=== PATIENT | female | born 1945 | race Caucasian/White ===

== ENCOUNTER 2024-03-04 14:52 | Inpatient (IN) | payer OTHER, MEDICARE, SELFPAY ==
[2024-03-04] VITALS (7 sets, daily range): BP systolic 126–159; BP diastolic 69–83; BMI 17.9
--- NOTE | 2024-03-04 13:39 | ED.GENMED ---
History of Present Illness
General
Chief Complaint: Musculo-Skeletal Complaint
Source: patient and spouse ( at bedside)
Exam Limitations: none
Time Seen by Provider: 03/04/24 13:19
Nursing documentation reviewed up to this point in time: agreed with
History of Present Illness
History of Present Illness:
79-year-old female presenting to the emergency department via EMS for evaluation of right hip pain. Patient states she sustained a mechanical fall last , 7 days ago, when she tripped over her bed sheets in her room. She was able to get up
after the fall but has had significant pain in her right hip since. Patient has been ambulating with much difficulty since fall with help of walker. Patient denies sustaining any other injuries in the fall. There was no head strike or loss of
conscious.
Patient denies any numbness/tingling in right hip. Patient specifically denies any headache, neck pain, back pain. No chest pain or shortness of breath.
Patient is not on any blood thinners.
Review of Systems
Review of Systems
Allergies reviewed?: Yes
All Other Systems: ROS reviewed and negative except as documented in HPI and ROS
Phy Exam
Physical Exam
Physical Exam:
Vitals: Mildly hypertensive, otherwise vital signs stable. Afebrile
General: Patient is uncomfortable appearing due to pain
Skin: Warm and dry, no rashes or lesions
Head: Normocephalic, atraumatic
Eyes: Sclera nonicteric. EOMs intact. No nystagmus.
Throat: Protecting airway
Neck: Normal ROM, no cervical spine tenderness, no meningismus
Cardiac: Regular rate and rhythm, no murmurs. No chest wall tenderness.
Pulm: Normal respiratory effort, no wheezes, rales, rhonchi heard on exam.
Abdomen: Abdomen soft. No abdominal tenderness.
Extremities: Right lower extremity shortened and externally rotated. Very limited range of motion of right hip due to pain. Healing ecchymoses of right iliac crest. Left lower extremity atraumatic and nontender with full range of motion.
Palpable DP and PT pulse in bilateral lower extremities. Sensation fully intact.
Neuro: AAOx3. Grossly intact.
Psychiatric: Normal affect.
Course
Orders/Labs/Results
Orders:
Orders
03/04/24 Breakfast
NPO
Allow oral meds: Yes
Allow clear liquids: Sips of Clears
03/04/24 11:21
Hip, Right 2-3 Views [CR Hip - RT w/wo Pel 2-3 Vw*] Urgent
Comment:
Reason For Exam: fall
Include a pelvis x-ray?: Yes
03/04/24 13:39
Acetaminophen [Tylenol] 650 mg PO NOW STA
03/04/24 13:41
Electrocardiogram (*1) Urgent
Reason for Study: PreOp
EKG- Treatment ONCE
03/04/24 14:00
Complete Blood Count/With Diff Urgent
Comprehensive Metabolic Panel Urgent
PTT Urgent
Prothrombin Time Urgent
03/04/24 14:23
Admit/Transfer Patient As Directed
Co-Sign Provider:
Level of Care: Inpatient admission
Assign to:: Medical/Surgical
Physician / Group: delma
Diagnosis: hip fracture
Reason for Hospitalization: hip fracture
Expected length of stay greater than two midnights?: Yes
ELOS- Estimated Length of Stay in days: 2
I certify the patient meets the requirements for IP care: Yes
Code Status As Directed
Resuscitation Status: Full Code
PRN Pain Medication Management As Directed
May give lesser potent ordered pain med per pt: Yes
preference::
Protocol:: Medication orders for pain may be administered in a
manner that supports deferring to patient preference
when the pt is:
- Requesting an ordered lesser potent pain medication.
Least to most potent pain medications are defined
as: acetaminophen < NSAID < tramadol < opioids
(morphine, oxycodone, hydromorphone).
- Requesting a lesser dose of the same medication IF
ORDERED.
- Requesting a less intrusive route of administration
if both routes are prescribed by the provider (PO <
IV).
03/04/24 Dinner
Regular
At Your Request: Full Participation
Does patient need a safe tray?: No
03/04/24 16:07
Acetaminophen [Tylenol] 650 mg PO Q4HPRN PRN
HYDROmorphone [Dilaudid] 0.5 mg IV Q4HPRN PRN
03/04/24 16:07
ORTHOPEDIC CONSULT Routine
Consulting Provider: Ky Shaffer
Was physician already notified: Yes
Activity As Directed
Activity Level: As Tolerated
Pneumatic Compression Sleeves As Directed
Type: Knee high
Vital Signs As Directed
Frequency: Per unit guidelines
DX Deep Vein Thrombosis Video Routine
Abnormal Lab Results
03/04/24
14:00
Absolute Neuts (auto) 8.0 H 10^3/uL
(1.4-6.5)
Absolute Lymphs (auto) 0.8 L 10^3/uL
(1.2-3.4)
Absolute Monos (auto) 0.8 H 10^3/uL
(0.1-0.6)
Neutrophils % 83.0 H %
(42.2-75.2)
Lymphocytes % 8.0 L %
(20.5-51.1)
BUN 27 H mg/dl
(7-17)
Total Protein 6.2 L g/dl
(6.3-8.2)
03/04/24 14:00
03/04/24 14:00
Vital Signs
Initial and Last Documented VS:
Initial Vital Signs
Temp Pulse Resp BP Pulse Ox
98 F 101 16 126/81 100
03/04/24 11:45 03/04/24 11:45 03/04/24 11:45 03/04/24 11:45 03/04/24 11:45
Last Documented Vital Signs
Temp Pulse Resp BP Pulse Ox
98.4 F 83 18 139/81 97
03/04/24 16:45 03/04/24 16:45 03/04/24 16:45 03/04/24 16:45 03/04/24 16:45
MDM/Problems Addressed
Differential Diagnosis Includes:
Not limited to: hip fracture, hip dislocation, hip contusion
MDM/Problems Addressed:
79-year-old female presents 7 days following mechanical fall with right hip pain. Difficulty ambulating due to pain. No other associated injuries obtained during fall. No head strike or loss of consciousness. Patient has stable vital signs on
arrival. On exam�patient clearly uncomfortable due to pain. Her right lower extremity is shortened and externally rotated. There is a mild healing ecchymosis of right hip. There is very limited range of motion in right hip due to pain. Right
lower extremity neurovascularly intact. There is no evidence of any head or neck trauma. An x-ray of the right hip was obtained which shows a mildly displaced subcapital fracture of the right hip. This was discussed with orthopedics. Patient
given Tylenol for pain. Preoperative labs including CBC, CMP, coags, EKG ordered. Patient will be admitted to hospitalist service with plan for OR tomorrow pending labs.
Update: Labs reviewed. No clinically significant abnormalities. Patient accepted to hospital service in stable condition.
Chronic conditions affecting care:
N/A
Acute Exacerbation and/or Progression of Chronic Illness:
N/A
*Radiology
Radiology exam reviewed: preliminary read by ED provider (Reviewed by me-right femoral neck fracture) and radiology read reviewed
*Pulse Oximetry
Patient hypoxic: no
*EKG
Interpreted by ED Provider?: Yes
EKG Intrepretation Date: 03/04/24
Interpretation: abnormal
Comparison EKG: no comparison EKG present
Heart Rate: 95
Rate: normal
Rhythm: sinus
Porter: left axis deviation
Interval: normal QT interval
QRS Pattern: normal QRS
Ischemia: non-specific ST changes
*Tax Manager Cpa Interpretation
Rate: normal
Interpretation: normal
Heart Rate: 84
Rhythm: sinus
*Critical Care Note
Total Time (30-74mins, 75-104mins- exclusive of procedures): Not Applicable
Patient Management
Discussion with other providers: Hospitalist and Direct Support Specialist (Orthopedics - Dr. Shaffer)
Escalation/DeEscalation of care consider admission/obs:
Admit - OR tomorrow with orthopedics
ED Attending Note
-
Portions of this chart may have been created with voice recognition software.� Occasional wrong word or��sound alike� substitutions may have occurred due to the inherent limitations of voice recognition software.
Discharge Plan
Departure
Patient Disposition: Admit
Date of Disposition: 03/04/24
Time of Disposition: 13:56
Presentation/result/management discussed w/ accepting MD/DO: Hospitalist
Discharge Problem:
Fracture of right hip
Interventions
Interventions:
*Risk Screen - Suicide Last Done: 03/04/24 11:49
*Neglect/Abuse Screening Last Done: 03/04/24 11:49
ED- Fall Risk Assessment Last Done: 03/04/24 12:51
*ED COVID-19 Vaccine History Last Done: 03/04/24 16:21
*Nursing Disposition Last Done: 03/04/24 15:56
ED-Musculoskeletal Assessment Last Done: 03/04/24 12:51
Discharge Date and Time
Discharge Date/Time: 03/04/24 15:56
[2024-03-04] MEDS: TYLENOL 650 MG PO (14:06)
[2024-03-04 14:10] LABS: % Basophils 0.2 % (0-2); % Eosinophils 0.3 % (0-6); % Immature Granulocytes 0.3 % (0-0.5); % Monocytes 8.2 % (1.7-9.3); Absolute Lymphocytes 0.8 10^3/uL (1.2-3.4); Absolute Monocytes 0.8 10^3/uL (0.1-0.6); Hemoglobin 13.7 g/dL (12.0-16.0); Mean Corp Hgb Conc. 33.4 g/dL (33.0-37.0); Mean Corpuscular Hgb 30.9 pg (27.0-31.0); Mean Corpuscular Volume 92.3 fL (81.0-99.0); Mean Platelet Volume 9.6 fL (7.4-10.4); Nucleated Red Blood Cells % 0 %; Platelet Count 263 10^3/uL (130-400); Red Blood Cell Count 4.44 10^6/uL (4.20-5.40); Red Cell Dist. Width 12.1 % (11.5-14.5); White Blood Cell Count 9.7 10^3/uL (4.8-10.8)
--- NOTE | 2024-03-04 14:25 | HPS.HSE ---
Family Physician
-
Family Physician: Amanda Vargas MD
Chief Complaint
-
hip pain
History of Present Illness
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 She had a mechanical fall last 7 days ago when she tripped over her bed sheets in her room. She was able to get up
after the fall but has significant pain in her right hip since then. She has been ambulating with much difficulty with the help of walker. She denies hitting her head or loss of consciousness. Denies any numbness or tingling in the right hip.
She denies smoking history. Alcohol occasionally.
Medical History
Past Medical History
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
Past Surgical History: Reports None
Social History
Tobacco: Non-smoker
Alcohol: Occasional
Drug: None
Family History
Family History: Not pertinent
Allergies / Home Medications
Allergies reflects when Allergies were last updated in [facility].
Home Medications with original date entered in [facility]
Allergy/Medication List:
Allergies
Allergy/AdvReac Type Severity Reaction Status Date / Time
diazepam Allergy Nausea Verified 03/04/24 12:47
Home Medications
No Meds [No Current Medications] 03/04/24
Review of Systems
-
History Source: Patient
A 12 point ROS was completed and negative except as noted: Yes
Constitutional: Reports No Symptoms
EENT: Reports No Symptoms
Respiratory: Reports No Symptoms
Cardiac: Reports No Symptoms
Abdomen/GI: Reports No Symptoms
: Reports No Symptoms
Musculoskeletal: Reports See HPI
Skin: Reports No Symptoms
Neurological: Reports No Symptoms
Endocrine: Reports No Symptoms
Hematologic/Lymphatic: Reports No Symptoms
Psych: Reports No Symptoms
Physical Exam
Vital Signs
Vital Signs
Temp Pulse Resp BP Pulse Ox
98 F 83 16 154/71 94
03/04/24 11:45 03/04/24 12:46 03/04/24 12:46 03/04/24 14:00 03/04/24 13:49
Physical Exam
General: Well Developed, Well Nourished and No Apparent Distress
HEENT: NormoCephalic, Moist mucous membranes and Atraumatic
Respiratory: Clear
Cardiac: S1/S2 and Regular Rhythm; No Murmur or Rub
GI: Soft, Non Tender, Non Distended and Normal Bowel Sounds; No Organomegaly
Rectal: Deferred by Provider
Musculoskeletal: No Clubbing, No Cyanosis and No Edema
Skin: No Rash
Neuro: Nonfocal/grossly intact
Laboratory Results
-
03/04/24 14:00
Data Reviewed
-
Lab Data: Labs Reviewed by me
Old Records: Reviewed
Impression/Plan
-
IMPRESSION:
PLAN:
# Right hip fracture
-Mildly displaced subcapital fracture of the right hip
-Tylenol, Dilaudid for pain
-Ortho consulted
-N.p.o. past midnight for surgery tomorrow
-Low risk for cardiac complications after surgery
Waldenstr�m's macroglobulinemia
-On Rituxan every 2 months,
-Receives immunoglobulin infusions
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
-Not malignant
Full code
DVT prophylaxis�SCDs
N.p.o. past midnight
[2024-03-04 14:36] LABS: PT 12.6 Sec (11.4-14.6)
[2024-03-04 14:43] LABS: ALT (SGPT) 17 U/L (0-35); AST (SGOT) 35 U/L (14-36); Albumin 3.7 g/dl (3.5-5.0); Alkaline Phosphatase 106 U/L (38-126); Blood Urea Nitrogen 27 mg/dl (7-17); Calcium 9.3 mg/dl (8.4-10.2); Carbon Dioxide 27 mmol/L (22-30); Chloride 105 mmol/L (98-107); Estimated Creatinine Clearance 43 ml/min; Glucose 93 mg/dl (70-99); Potassium 4.3 mmol/L (3.5-5.1); Sodium 139 mmol/L (135-145); Total Bilirubin 0.6 mg/dl (0.2-1.3); Total Protein 6.2 g/dl (6.3-8.2); eGFR > 60.00
--- NOTE | 2024-03-04 16:50 | W.PN.UPDATE ---
Update Note
Progress Note Update
With R femoral neck fx
Will need surgery--Hemiarthroplasty
NPO for tomorrow
thanks
GGMD
--- NOTE | 2024-03-04 17:01 | PTCARENOTE ---
Patient admitted from home through the Emergency room for right hip fracture.Patient fell last at home and came to the ER today with increasing pain in her right hip.She will have surgery tomorrow.She is alert and oriented and rates her
pain at an 8 out of 10.The patient is in her bed with the call ferreira in reach.Her is at the bedside.
[2024-03-05] VITALS (13 sets, daily range): BP systolic 121–170; BP diastolic 62–97
[2024-03-05] MEDS: TYLENOL 650 MG PO ×2 (00:25→04:47)
--- NOTE | 2024-03-05 12:16 | W.PN.HOSP.TC ---
Today's Communication/Plan
-
Await surgery
Assessment / Plan
Assessment / Plan
Gen-AAOx3, NAD
HEENT-NC, AT, anicteric, clear oral mm
Neck-supple
CV-reg, no M, +S1/S2
Lungs-clear B/L
Abd-soft, NT, ND
Ext-no edema
Musculoskeletal-no cyanosis, clubbing
Skin-warm and dry
Neuro-grossly non-focal
Psych-calm, cooperative
Acute traumatic right hip subcapital fracture -due to fall and underlying osteoporosis. Fall happened about 8 days ago. She believed that her pain would improve at home and did not seek medical attention initially.
Currently n.p.o., awaiting surgery today. Orthopedics consulted.
Outpatient treatment of osteoporosis, discussed with the patient.
Waldenstr�m's macroglobulinemia
Full code
PT/OT postop
Anticipated Discharge: 24 - 48 hours
Subjective/Interval History
-
Date of Service: March 05, 2024
Patient seen and examined. Pain is controlled. No other complaints.
Objective Data
-
Vital Signs:
Vital Signs
Temp Pulse Resp BP Pulse Ox
98.3 F 78 18 149/80 97
03/05/24 08:03 03/05/24 08:03 03/05/24 08:03 03/05/24 08:03 03/05/24 08:03
I&O
03/04/24 03/05/24 03/06/24
06:59 06:59 06:59
Output Total 250 / 250 300 / 300
Balance -250 / -250 -300 / -300
Review of Systems
-
History Source: Patient
All other systems: Reviewed and negative
[2024-03-05] MEDS: ZOFRAN 4 MG IV (15:29)
[2024-03-05] MEDS: COMPAZINE 5 MG IV (15:52)
--- NOTE | 2024-03-05 16:16 | CM ---
Met with pt at bedside
Pt reports she lives with her in a 1 story home; 2 steps to enter
Independent, employed FT, drives
DME - rolling walker
SNF/HH - denies past hx
Has ride at discharge
PCP - Amanda Vargas
Pharm - Ed
For OR today for repair of hip fx
Discussed SNF vs HH at discharge
PT/OT evals pending post-op
Plan - TBD based on pt needs postop
[2024-03-05] MEDS: NORMOSOL-R/PLASMALYTE-A 1000 IV (16:58)
--- NOTE | 2024-03-05 17:00 | PTCARENOTE ---
received pt back from PACU. pt is drowsy, responds to verbal stimuli with stable vitals. pt presents on 2L NC. care/assessment provided upon coming back to unit. 2 primaseal dressing present on right hip; no shadowing noted on 2nd outermost
dressing upon arrival to the floor. fluids initiated/infusing per order. Neuro checks preformed; see charting. care plan continues to be followed. PROTECTIVE SIGNAL OPERATIONS SUPERVISOR touched base with spouse via phone.
[2024-03-05] MEDS: COLACE PO ×2 (21:17→21:21)
[2024-03-05] MEDS: ANCEF 5 IV (21:18)
[2024-03-06] VITALS (7 sets, daily range): BP systolic 101–138; BP diastolic 60–72; PULSE 100
[2024-03-06] MEDS: NORMOSOL-R/PLASMALYTE-A 1000 IV (01:53)
[2024-03-06] MEDS: ANCEF 5 IV ×2 (05:56→15:27)
[2024-03-06 06:06] LABS: Hematocrit 34.8 % (37.0-47.0); Hemoglobin 11.6 g/dL (12.0-16.0)
[2024-03-06 06:30] LABS: Blood Urea Nitrogen 27 mg/dl (7-17); Calcium 8.5 mg/dl (8.4-10.2); Carbon Dioxide 30 mmol/L (22-30); Chloride 101 mmol/L (98-107); Estimated Creatinine Clearance 34 ml/min; Glucose 133 mg/dl (70-99); Potassium 4.1 mmol/L (3.5-5.1); Sodium 138 mmol/L (135-145); eGFR 57.31
[2024-03-06] MEDS: COLACE 100 MG PO (07:55)
[2024-03-06] MEDS: LOVENOX 30 MG SC (07:56)
--- NOTE | 2024-03-06 08:04 | W.PN.UPDATE ---
Update Note
Progress Note Update
Comfortable
VSS
Dressing intact
R LE NVI
Xrays look well
Rec;
PT/POT
Rehab placement if needed
Should have DVT prophylaxis for ~4 weeks
Lovenox best
Have F/U with me in about 2 weeks for suture removal
thanks
GGMD
[2024-03-06] MEDS: TYLENOL 650 MG PO (10:44)
--- NOTE | 2024-03-06 13:45 | W.PN.HOSP.TC ---
Today's Communication/Plan
-
PT/OT
Assessment / Plan
Assessment / Plan
Gen-AAOx3, NAD
HEENT-NC, AT, anicteric, clear oral mm
Neck-supple
CV-reg, no M, +S1/S2
Lungs-clear B/L
Abd-soft, NT, ND
Ext-no edema
Musculoskeletal-no cyanosis, clubbing
Skin-warm and dry
Neuro-grossly non-focal
Psych-calm, cooperative
Acute traumatic right hip subcapital fracture -due to fall and underlying osteoporosis. Fall happened about 8 days ago.
Stable postop, right hip cemented hemiarthroplasty, 03/[address] Shaffer. Outpatient follow-up.
Waldenstr�m's macroglobulinemia -with acute postop anemia possibly due to operative blood loss. Hemoglobin 11.6. Monitor for now.
Full code
Dispo -likely will need SNF on discharge, await PT/OT input. Case management aware.
Anticipated Discharge: 24 - 48 hours
Subjective/Interval History
-
Date of Service: March 06, 2024
Patient seen and examined. Pain is controlled. No complaints.
Objective Data
-
Labs:
Laboratory Results
03/06/24
05:23
Hgb 11.6 L
Hct 34.8 L
Sodium 138
Potassium 4.1
Chloride 101
Carbon Dioxide 30
BUN 27 H
Creatinine 1.0
Glucose 133 H
Calcium 8.5
Vital Signs:
Vital Signs
Temp Pulse Resp BP Pulse Ox
98.7 F 96 18 101/61 95
03/06/24 11:30 03/06/24 11:30 03/06/24 11:30 03/06/24 11:30 03/06/24 11:30
I&O
03/05/24 03/06/24 03/07/24
06:59 06:59 06:59
Intake Total 1810 / 1810
Output Total 250 / 250 300 / 300
Balance -250 / -250 1510 / 1510
Review of Systems
-
History Source: Patient
All other systems: Reviewed and negative
[2024-03-06] MEDS: NORMOSOL-R/PLASMALYTE-A IV ×2 (15:28)
--- NOTE | 2024-03-06 15:48 | CM ---
Reviewed the chart notes and spoke with the patient and her spouse at the bedside. Discussed SNF recommendations. Referrals sent via [facility] along with [facility]. CM continues to be available to patient/family and is monitoring medical plan for
needs at discharge.
Plan: Discharge to SNF/rehab once bed secured. No precert required.
[2024-03-06] MEDS: COLACE PO (21:27)
[2024-03-07 08:24] VITALS: BP 129/71
[2024-03-07] MEDS: TYLENOL 650 MG PO ×2 (10:10→18:13)
[2024-03-07] MEDS: LOVENOX 30 MG SC (10:11)
[2024-03-07] MEDS: COLACE 100 MG PO (10:11)
--- NOTE | 2024-03-07 11:31 | CM ---
Received an e-mailed copy of the patient' primary insurance of [employer], a managed plan. Spoke with admissions, they do not need the back of card. Admissions changed Medicare as primary to secondary. Per spouse, they can not
bill Medicare or for hospitalization or services. CM continues to be available to patient/family and is monitoring medical plan for needs at discharge.
Plan: Discharge to SNF/rehab once bed secured and auth obtained since Medicare is not the primary.
[2024-03-07 12:29] VITALS: BP 101/60; PULSE 109; O2SAT 99
--- NOTE | 2024-03-07 13:57 | W.PN.HOSP.TC ---
Today's Communication/Plan
-
Discharge planning
Assessment / Plan
Assessment / Plan
Gen-AAOx3, NAD
HEENT-NC, AT, anicteric, clear oral mm
Neck-supple
CV-reg, no M, +S1/S2
Lungs-clear B/L
Abd-soft, NT, ND
Ext-no edema
Musculoskeletal-no cyanosis, clubbing
Skin-warm and dry
Neuro-grossly non-focal
Psych-calm, cooperative
Acute traumatic right hip subcapital fracture -due to fall and underlying osteoporosis. Fall happened about 8 days ago.
Stable postop, right hip cemented hemiarthroplasty, 03/[address] Shaffer. Outpatient follow-up.
Waldenstr�m's macroglobulinemia -with acute postop anemia possibly due to operative blood loss. Hemoglobin 11.6. Monitor for now.
Full code
Dispo -medically stable for discharge to SNF. Case management aware.
Anticipated Discharge: Within 24 hours
Subjective/Interval History
-
Date of Service: March 07, 2024
Patient seen and examined. No complaints.
Objective Data
-
Vital Signs:
Vital Signs
Temp Pulse Resp BP Pulse Ox
98.6 F 90 14 129/71 95
03/07/24 08:24 03/07/24 08:24 03/07/24 08:24 03/07/24 08:24 03/07/24 08:24
I&O
03/06/24 03/07/24 03/08/24
06:59 06:59 06:59
Intake Total 1810 / 1810 1380 / 1380
Output Total 300 / 300
Balance 1510 / 1510 1380 / 1380
Review of Systems
-
History Source: Patient
All other systems: Reviewed and negative
[2024-03-07 15:22] VITALS: BP 95/66
[2024-03-07] MEDS: COLACE PO (21:52)
[2024-03-07 23:18] VITALS: BP 129/66
[2024-03-08 07:10] VITALS: BP 119/63
--- NOTE | 2024-03-08 08:36 | W.PN.HOSP.TC ---
Today's Communication/Plan
-
Pain control. Discharge planning in progress.
Assessment / Plan
Assessment / Plan
Gen-AAOx3, NAD
HEENT-NC, AT, anicteric, clear oral mm
Neck-supple
CV-reg, no M, +S1/S2
Lungs-clear B/L
Abd-soft, NT, ND
Ext-no edema
Musculoskeletal-no cyanosis, clubbing, right hip postop findings
Skin-warm and dry
Neuro-grossly non-focal
Psych-calm, cooperative
A/P:
Acute traumatic right hip subcapital fracture -due to fall and underlying osteoporosis. Fall happened about 8 days ago.
Stable postop, right hip cemented hemiarthroplasty, 03/[address] Shaffer. Added oral narcotic pain medications as needed. Continue bowel regimen. Outpatient follow-up. Awaiting correctional case records supervisor for discharge disposition.
Waldenstr�m's macroglobulinemia -and also a component of acute blood loss. Hemoglobin 11.1. Monitor hb.
Lovenox for DVT prophylaxis.
Full code
Anticipated Discharge: 24 - 48 hours
Subjective/Interval History
-
Date of Service: March 08, 2024
Patient able to participate in therapy. Surgical site soreness. No chest pain or shortness of breath.
Objective Data
-
Vital Signs:
Vital Signs
Temp Pulse Resp BP Pulse Ox
98.1 F 99 16 119/63 96
03/08/24 07:10 03/08/24 07:10 03/08/24 07:10 03/08/24 07:10 03/08/24 07:10
I&O
03/07/24 03/08/24 03/09/24
06:59 06:59 06:59
Intake Total 1380 / 1380 720 / 720
Balance 1380 / 1380 720 / 720
[2024-03-08] MEDS: COLACE PO ×2 (08:38→20:49)
[2024-03-08] MEDS: LOVENOX 30 MG SC (08:38)
[2024-03-08 09:28] LABS: Hematocrit 33.7 % (37.0-47.0); Hemoglobin 11.1 g/dL (12.0-16.0)
[2024-03-08 13:12] VITALS: BP 129/72; PULSE 115
[2024-03-08 15:05] VITALS: BP 124/73
[2024-03-08 15:30] VITALS: BP 124/73; PULSE 117; O2SAT 97
--- NOTE | 2024-03-08 16:11 | CM ---
Met with pt and her at bedside
Discussed accepting facility's - preference is [facility]
Will review insurance to check within network
Plan - anticipate SNF when bed obtained and medically ready
--- NOTE | 2024-03-08 16:41 | PTCARENOTE ---
Patient has no c/o pain, only tenderness when palpating right thigh. Patient ambulating to bathroom with supervision. patient refers to sit in chair during the day. Call ferreira in reach, spouse at bedside.
[2024-03-08] MEDS: TYLENOL 650 MG PO (20:57)
[2024-03-08 23:30] VITALS: BP 147/85
[2024-03-09 07:04] LABS: Hematocrit 31.5 % (37.0-47.0); Hemoglobin 10.3 g/dL (12.0-16.0); Mean Corp Hgb Conc. 32.7 g/dL (33.0-37.0); Mean Corpuscular Volume 94.9 fL (81.0-99.0); Mean Platelet Volume 9.8 fL (7.4-10.4); Platelet Count 351 10^3/uL (130-400); Red Blood Cell Count 3.32 10^6/uL (4.20-5.40); Red Cell Dist. Width 12.7 % (11.5-14.5); White Blood Cell Count 10.2 10^3/uL (4.8-10.8)
[2024-03-09 07:15] VITALS: BP 136/83
[2024-03-09 07:39] LABS: Blood Urea Nitrogen 24 mg/dl (7-17); Calcium 8.8 mg/dl (8.4-10.2); Carbon Dioxide 31 mmol/L (22-30); Chloride 101 mmol/L (98-107); Estimated Creatinine Clearance 38 ml/min; Glucose 96 mg/dl (70-99); Sodium 139 mmol/L (135-145); eGFR > 60.00
[2024-03-09] MEDS: COLACE PO (08:11)
[2024-03-09] MEDS: LOVENOX 30 MG SC (08:15)
--- NOTE | 2024-03-09 08:56 | W.PN.HOSP.TC ---
Addendum entered and electronically signed by Ang Chanel MD 03/09/24 17:54:
updated over the phone
Addendum entered and electronically signed by Ang Chanel MD 03/09/24 15:01:
Underweight
Original Note:
Today's Communication/Plan
-
Discharge planning in progress
Assessment / Plan
Assessment / Plan
Gen-AAOx3, NAD
HEENT-NC, AT, anicteric, clear oral mm
Neck-supple
CV-reg, no M, +S1/S2
Lungs-clear B/L
Abd-soft, NT, ND
Ext-no edema
Musculoskeletal-no cyanosis, clubbing, right hip postop findings
Skin-warm and dry
Neuro-grossly non-focal
Psych-calm, cooperative
A/P:
Acute traumatic right hip subcapital fracture -due to fall and underlying osteoporosis. Fall happened about 8 days ago.
Stable postop, right hip cemented hemiarthroplasty, 03/[address] Shaffer. Added oral narcotic pain medications as needed. Continue bowel regimen. Outpatient follow-up. Awaiting case work aide for discharge disposition.
Waldenstr�m's macroglobulinemia -and also a component of acute blood loss. Hemoglobin 11.1. Monitor hb.
Lovenox for DVT prophylaxis.
Full code
Anticipated Discharge: 24 - 48 hours
Subjective/Interval History
-
Date of Service: March 09, 2024
Patient with normal postop site pain. No chest pain or shortness of breath
Objective Data
-
Labs:
Laboratory Results
03/09/24
06:19
WBC 10.2
Hgb 10.3 L
Hct 31.5 L
Plt Count 351 D
Sodium 139
Potassium 4.0
Chloride 101
Carbon Dioxide 31 H
BUN 24 H
Creatinine 0.9
Glucose 96
Calcium 8.8
Vital Signs:
Vital Signs
Temp Pulse Resp BP Pulse Ox
98.3 F 83 17 136/83 96
03/09/24 07:15 03/09/24 07:15 03/09/24 07:15 03/09/24 07:15 03/09/24 07:15
I&O
03/08/24 03/09/24 03/10/24
06:59 06:59 06:59
Intake Total 720 / 720 960 / 960
Balance 720 / 720 960 / 960
--- NOTE | 2024-03-09 10:54 | PN.CDI ---
CDI
- -
CDI:
Physician Documentation Request
Admit Date: 03/04/24 14:52
Dear Doctor Darío,
Please review the following and provide your response in the progress notes.
Clinical Indicators:
Height: 5' 4'
Weight: 104 lbs
BMI: 17.9
If possible, please provide an associated diagnosis related to the abnormal BMI, such as:
Underweight
Cachectic
BMI is not significant
Other
BMI < or = to 19.9
Underweight
Weight Loss
Cachectic
Anorexia
Use of terms such as suspected, likely, concern for, or probable (associated with a specific diagnosis that is being evaluated, monitored, or treated as if it exists) are acceptable and can be coded in the inpatient setting, when documented at the
time of discharge.
Thank you,
Taty Kraft RN, BSN
CDI Specialist
Available via [place] text
Please use your independent medical judgment in providing your response.
[2024-03-09 11:05] VITALS: BP 125/79; PULSE 106
--- NOTE | 2024-03-09 15:44 | CM ---
Chart reviewed and met with pt
Spoke with Sujatha at [facility] [phone]
Per Sujatha Landin does not cover SNF
Pt/ updated - discussed poss private pay or having secondary insurance pay
No bed today at [facility]
Plan - anticipate snf vs HH when medically stable
[2024-03-09 18:10] VITALS: BP 112/70
[2024-03-09] MEDS: COLACE 100 MG PO (20:17)
[2024-03-09] MEDS: TYLENOL 650 MG PO (20:17)
[2024-03-09 23:02] VITALS: BP 134/73
[2024-03-10 07:10] LABS: Hemoglobin 10.8 g/dL (12.0-16.0)
[2024-03-10 08:00] VITALS: BP 116/69
[2024-03-10] MEDS: LOVENOX 30 MG SC (08:59)
[2024-03-10] MEDS: COLACE PO ×2 (09:00→21:40)
--- NOTE | 2024-03-10 09:49 | W.PN.HOSP.TC ---
Today's Communication/Plan
-
Postop care
Assessment / Plan
Assessment / Plan
Gen-AAOx3, NAD
HEENT-NC, AT, anicteric, clear oral mm
Neck-supple
CV-reg, no M, +S1/S2
Lungs-clear B/L
Abd-soft, NT, ND
Ext-no edema
Musculoskeletal-no cyanosis, clubbing, right hip postop findings
Skin-warm and dry
Neuro-grossly non-focal
Psych-calm, cooperative
A/P:
Acute traumatic right hip subcapital fracture -due to fall and underlying osteoporosis. Fall happened about 8 days ago.
Stable postop, right hip cemented hemiarthroplasty, 03/[address] Shaffer. Added oral narcotic pain medications as needed. Continue bowel regimen. Outpatient follow-up. Awaiting employment case manager for discharge disposition-Home with home health versus
rehab.
Waldenstr�m's macroglobulinemia -and also a component of acute blood loss. Hemoglobin 10.8. Monitor hb.
Lovenox for DVT prophylaxis.
Full code
Anticipated Discharge: 24 - 48 hours
Subjective/Interval History
-
Date of Service: March 10, 2024
Patient doing well. No chest pain or shortness of breath.
Objective Data
-
Labs:
Laboratory Results
03/10/24
06:46
Hgb 10.8 L
Hct 32.0 L
Vital Signs:
Vital Signs
Temp Pulse Resp BP Pulse Ox
98.7 F 99 16 116/69 100
03/10/24 08:00 03/10/24 08:00 03/10/24 08:00 03/10/24 08:00 03/10/24 08:00
I&O
03/09/24 03/10/24 03/11/24
06:59 06:59 06:59
Intake Total 960 / 960 1440 / 1440
Balance 960 / 960 1440 / 1440
[2024-03-10 12:58] VITALS: BP 114/63; PULSE 110; O2SAT 100
[2024-03-10 15:54] VITALS: BP 127/77
[2024-03-10] MEDS: TYLENOL 650 MG PO (21:38)
[2024-03-10 23:15] VITALS: BP 143/76
[2024-03-11 07:00] VITALS: BP 119/75
--- NOTE | 2024-03-11 07:24 | W.PN.HOSP.TC ---
Addendum entered and electronically signed by Ang Chanel MD 03/11/24 16:39:
Right hip fracture related to trauma and it has not been confirmed there is evidence of osteoporosis. She will have bone scan as outpatient for further evaluation
Original Note:
Today's Communication/Plan
-
Discharge planning today
Assessment / Plan
Assessment / Plan
Gen-AAOx3, NAD
HEENT-NC, AT, anicteric, clear oral mm
Neck-supple
CV-reg, no M, +S1/S2
Lungs-clear B/L
Abd-soft, NT, ND
Ext-no edema
Musculoskeletal-no cyanosis, clubbing, right hip postop findings
Skin-warm and dry
Neuro-grossly non-focal
Psych-calm, cooperative
A/P:
Acute traumatic right hip subcapital fracture -due to fall and underlying osteoporosis. Fall happened about 8 days ago.
Stable postop, right hip cemented hemiarthroplasty, 03/[address] Shaffer. Added oral narcotic pain medications as needed. Continue bowel regimen. Outpatient follow-up. Awaiting disease case manager for discharge disposition-Home with home health versus
rehab. Patient decided on home with home health.
Waldenstr�m's macroglobulinemia -and also a component of acute blood loss. Hemoglobin 10.8. Monitor hb. Rituximab as OP.
Lovenox for DVT prophylaxis.
Full code
Anticipated Discharge: Today
Subjective/Interval History
-
Date of Service: March 11, 2024
Patient doing well overall. Walking to the hallway.
Objective Data
-
Labs:
Laboratory Results
03/11/24
06:10
Hgb Pending
Hct Pending
Vital Signs:
Vital Signs
Temp Pulse Resp BP Pulse Ox
98.9 F 88 16 143/76 96
03/10/24 23:15 03/10/24 23:15 03/10/24 23:15 03/10/24 23:15 03/11/24 00:09
I&O
03/10/24 03/11/24 03/12/24
06:59 06:59 06:59
Intake Total 1440 / 1440 480 / 480
Balance 1440 / 1440 480 / 480
[2024-03-11 07:46] LABS: Hematocrit 33.3 % (37.0-47.0); Hemoglobin 11.2 g/dL (12.0-16.0)
[2024-03-11] MEDS: COLACE PO (07:53)
--- NOTE | 2024-03-11 11:56 | CM ---
Addendum entered by Ehsan Mg 03/11/24 13:37:
Discharge order noted. Pt is aware and she stated her will transport home.
[facility] liaison met with the pt. Pt is accepted for VN services.
D/C plan: home with [facility] and family support. to transport.
Original Note:
CM following re: discharge planning.
Reviewed pt's chart, met with pt.
PT and OT updated evaluations noted - home PT/OT recommended. Pt is aware, expressed her agreement. A list of VN vendors provided, pt preferred [facility]. A referral to [facility] made.
Pt reports she lives with at [facility], has no children. 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
Pt has Medicare insurance as secondary. IMM reviewed, placed on chart, pt has a copy.
D/C plan: home with [facility] and family support. to transport at discharge.
CM will follow to assist pt with discharge plan updates as needed.
--- NOTE | 2024-03-11 12:42 | VNURNOTE ---
Home Health Liaison met with patient at bedside to discuss [facility] nurse/therapy, visits, schedule and homebound status. Patient is agreeable and understands that visits at home will be 2-3 x per week to assess and teach medical management. [facility]
brochure provided with contact information. Patient is aware that [facility] will contact them for start of care in 1-2 days after discharge from .
[facility] referral completed in [facility].
--- NOTE | 2024-03-11 13:17 | W.DCSUMMARY ---
Discharge Summary
Discharge Data
Date of Admission: 03/04/24
Date of Discharge: 03/11/24
-
Pending Results: No
Hospital Course
Patient is 79 years old female with history of Waldenstr�m macroglobulinemia presented to the hospital with a mechanical fall. She was found to have a right femoral neck fracture. Orthopedic consulted. She had a right hip cemented
hemiarthroplasty on 03/05. She did well postoperatively except for mild drop in her hemoglobin but later on remained stable. She has participated with PT and OT. human resources assistant manager was going to work on rehab but she did so well that she can go home
with home health and she also did not qualify for rehab. Due to the concerns of her fall and fracture patient will require further workup for osteoporosis with follow-up bone scan as outpatient. Otherwise, patient hemodynamically stable and doing
well postop. She will be discharged in stable condition today.
Discharge Plan
-
Patient Disposition: Home with Home Care
Discharge Diagnosis/Procedures: Right hip fracture status post surgery from trauma. Acute blood loss anemia. Further workup required for osteoporosis as outpatient. History of Waldenstr�m's macroglobulinemia.
Diet: Low Cholesterol
Activity: Other activity
Additional Activity: As instructed by orthopedic and physical therapy.
Blood Work: Please PCP to order CBC, BMP within 1 week
Referrals:
Ky Shaffer MD [Active] - in one to two weeks
Amanda Vargas MD [Family Provider] - in less than 1 week
Prescriptions:
New
acetaminophen 325 mg Tablet
650 mg PO Q4HPRN PRN (Reason: mild pain/TEJADA/temp> 100.4F) Qty: 20 0RF
oxycodone 5 mg capsule
5 mg PO Q8H PRN (Reason: severe pain) Qty: 20 0RF
docusate sodium [Colace] 100 mg capsule
100 mg PO BID Qty: 20 0RF
enoxaparin 40 mg/0.4 mL Syringe
40 mg SC DAILY 28 Days Qty: 11.2 0RF
(DME) commode
See Rx Instructions .Route .MEDSUPPLY Qty: 1 0RF
Rx Instructions:
As directed
Discharge Orders:
Discharge Patient (As Directed); Ordered 03/11/24
Ordered By: Ang Chanel
Discharge Date and Time
Discharge Date/Time: 03/11/24 17:00
Print Language: CROATIAN
[2024-03-11 15:07] VITALS: BP 119/81
== END 2024-03-11 17:00 | disposition home health service (06) | DRG 522 ==
LOC: 2 SOUTH 14:52
PROVIDERS: Physician Assistant; ADMITTING PHYSICIAN Hospitalist; ATTENDING PHYSICIAN Hospitalist; CONSULT PHYSICIAN Orthopaedic Surgery Hand Surgery; EMERGENCY PHYSICIAN Student in an Organized Health Care Education/Training Program; FAMILY PHYSICIAN Student in an Organized Health Care Education/Training Program
PROC: 0SRR0J9 Replacement of Right Hip Joint, Femoral Surface with Synthetic Substitute, Cemented, Open Approach (ICD-10-PCS; 2024-03-05)
DX: S72.011A Unspecified intracapsular fracture of right femur, initial encounter for closed fracture (principal); D62 Acute posthemorrhagic anemia; Z68.1 Body mass index [BMI] 19.9 or less, adult; C88.00 Waldenstrom macroglobulinemia not having achieved remission; R63.6 Underweight; W01.0XXA Fall on same level from slipping, tripping and stumbling without subsequent striking against object, initial encounter; Y93.01 Activity, walking, marching and hiking; Y92.003 Bedroom of unspecified non-institutional (private) residence as the place of occurrence of the external cause; Z88.8 Allergy status to other drugs, medicaments and biological substances
CPT/HCPCS: 73501; 73502; 80048; 80053; 85014; 85018; 85025; 85027; 85610; 85730; 86850; 86900; 86901; 93005; 97116; 97163; 97166; 97530; 97535; 99285; C1713; C1776

== ENCOUNTER 2025-01-21 19:40 | Inpatient (IN) | payer MEDICARE, SELFPAY ==
[2025-01-21 12:38] VITALS: BP 105/75
[2025-01-21] MEDS: TYLENOL 650 MG PO ×2 (13:23→21:26)
[2025-01-21 13:40] LABS: ALT (SGPT) 46 U/L (0-35); AST (SGOT) 206 U/L (14-36); Albumin 4.2 g/dl (3.5-5.0); Alkaline Phosphatase 287 U/L (38-126); Blood Urea Nitrogen 28 mg/dl (7-17); Calcium 9.1 mg/dl (8.4-10.2); Carbon Dioxide 28 mmol/L (22-30); Chloride 100 mmol/L (98-107); Glucose 127 mg/dl (70-99); Potassium 3.4 mmol/L (3.5-5.1); Sodium 136 mmol/L (135-145); Total Protein 6.6 g/dl (6.3-8.2); eGFR 41.83
[2025-01-21 13:43] LABS: Hematocrit 45.5 % (37.0-47.0); Hemoglobin 15.1 g/dL (12.0-16.0); Mean Corp Hgb Conc. 33.2 g/dL (33.0-37.0); Mean Corpuscular Volume 86.3 fL (81.0-99.0); Red Cell Dist. Width 14.2 % (11.5-14.5)
[2025-01-21 14:19] LABS: Platelet Count 30 10^3/uL (130-400)
[2025-01-21 14:20] LABS: Absolute Neutrophils -Man Diff 7.5 10^3/uL (1.4-6.5); Normal RBC Morphology Yes; Platelets Checked Yes; Total Cells Counted 100
[2025-01-21 15:49] LABS: Urine Character Cloudy (Clear)
[2025-01-21 16:25] LABS: Urine White Cell >100 /HPF (0-5)
[2025-01-21 17:00] VITALS: BP 114/68
[2025-01-21] MEDS: NSS 500 IV (17:19)
[2025-01-21] MEDS: ROCEPHIN 2000 MG IV (17:36)
[2025-01-21 18:00] VITALS: BP 132/73
[2025-01-21 18:02] LABS: COVID-19 Antigen Negative (Negative)
--- NOTE | 2025-01-21 18:45 | ED.GENMED ---
History of Present Illness
General
Chief Complaint: Bowel Problem
Source: patient and spouse
Time Seen by Provider: 01/21/25 16:54
History of Present Illness
History of Present Illness:
Note:
CHIEF COMPLAINT(S)
Abdominal pain
HISTORY OF PRESENT ILLNESS
The patient is a 63-year-old female who presents with abdominal pain that began yesterday morning. She describes the pain as located in the epigastric area, at the top part of her abdomen. She reports an associated low-grade fever of 99.8�F noted at
urgent care. She denies nausea, vomiting, or changes in bowel movements, with no black or bloody stools. She also denies any urinary complaints. The patient admits to passing gas and denies alcohol use. She mentioned a history of gallstones
discovered incidentally during an imaging study for another reason.
PAST MEDICAL AND SURIGICAL HISTORY
The patient has undergone an appendectomy and about six laparoscopic surgeries for endometriosis, aimed at addressing abdominal adhesions and endometrial implants. She ultimately underwent a hysterectomy.
EXTERNAL RECORDS REVIEWED
The patient mentioned visiting urgent care, where an x-ray was performed, leading to a suspicion of constipation. However, no details about the gallbladder or pancreas were obtained from that imaging.
CHRONIC MEDICAL CONDITIONS SIGNIFICANTLY AFFECTING CARE
History of endometriosis, leading to multiple laparoscopic surgeries and hysterectomy.
History of gallstones.
PHYSICAL EXAM
General: Alert, no acute distress.
Skin: Warm, dry.
Head: Normocephalic, atraumatic.
Neck: Supple, trachea midline.
Eye Ears, nose, mouth and throat: Oral mucosa moist.
Cardiovascular: Regular rate and rhythm, normal peripheral perfusion, no edema.
Respiratory: Lungs clear to auscultation, respirations non-labored.
Gastrointestinal : Moderate tenderness in the epigastric region and right upper quadrant without abdominal distension.
Back: Normal range of motion, normal alignment.
Musculoskeletal: Normal range of motion, normal strength.
Neurological: Alert and oriented to person, place, time, and situation, no focal neurological deficit observed.
Psychiatric: Cooperative, appropriate mood & affect.
PLAN
A CT scan is recommended to evaluate the gallbladder, pancreas, and bowel thoroughly, as well as to assess the aorta in light of the pains location. The CT scan will help rule out potential gastrointestinal or pancreatic issues and provide a
comprehensive view of the abdominal organs. Further ultrasound may be considered if the CT results indicate an abnormality requiring additional focus, particularly in the gallbladder.
DIFFERENTIAL DIAGNOSIS
The Differential Diagnosis includes, in no particular order and is not limited to:
1. Cholecystitis
2. Peptic Ulcer Disease
3. Gastritis
4. Pancreatitis
5. Hepatitis
6. Biliary Colic
7. Mesenteric Ischemia
8. Gastroesophageal Reflux Disease (GERD)
9. Abdominal Aortic Aneurysm
10. Bowel Obstruction
CARE-UPDATE
01/21/25 - 23:25
Patient continues to experience pain, although some improvement noted, especially with easier breathing. Examination suggests possible inflammation at the junction of the pancreas and small bowel. Blood work, including pancreas enzymes, is normal.
Current pain might be due to gallstones or potential small bowel inflammation related to mild infection or ulcer. Plan to monitor patient overnight with IV fluids and bowel rest. Administered antacid to address possible ulcer. Decision to observe
overnight is precautionary, with potential for discharge if pain significantly improves by morning. Patient declined additional pain medication at this time but is advised to request if needed.
Disposition:
SUMMARY OF ENCOUNTER
The patient is a 63-year-old female who presented to the emergency department with abdominal pain. Upon reassessment, the patients pain persisted, and laboratory tests revealed leukocytosis with a white blood cell count of 13.7, hyponatremia with a
sodium level of 132, hypokalemia with a potassium level of 2.9, and mild dehydration as evidenced by a BUN/Creatinine ratio of 24 and creatinine level of 1.1. Blood glucose was 137 mg/dL. Liver function tests showed normal AST and ALT levels, while
lipase was normal. A CT scan of the abdomen revealed cholelithiasis and inflammatory changes around the second to third portion of the duodenum, possibly involving the pancreas. Due to her persistent pain and leukocytosis, an ultrasound was
considered to check for a possible gallbladder neck stone. Diagnostic considerations included pancreatitis, cholecystitis, duodenitis, and duodenal ulcer.
PLAN
The plan includes administering IV pantoprazole (Protonix), IV ampicillin/sulbactam (Unasyn), continuing pain control, and keeping the patient NPO for bowel rest. IV D5W with normal saline will be administered, and the patient will be admitted for
further management. Gastroenterology and possibly surgical consultations may be needed.
INDEPENDENT REVIEW OF LABS AND INTERPRETATION OF TESTS
My independent review of the CBC is leukocytosis with a white blood cell count of 13.7.
My independent review of chemistry reveals hyponatremia with sodium at 132, hypokalemia at 2.9, and a BUN/Creatinine ratio of 24 with creatinine at 1.1.
Blood glucose review indicates a level of 137 mg/dL.
LFT review shows normal AST and ALT levels, with a normal lipase.
RADIOLOGY RESULTS
My independent CT interpretation shows cholelithiasis and inflammatory changes around the second to third portion of the duodenum, potentially involving the pancreas.
MEDICAL DECISION MAKING
- Number and Complexity of Problems Addressed: Chronic conditions affecting care include a history of endometriosis with multiple surgeries and a history of gallstones. Differential diagnoses considered include pancreatitis, cholecystitis,
duodenitis, duodenal ulcer.
- Data:
Category 1 (Tests and documents): Reviewed labs including CBC, chemistry, liver function tests, and CT scan of the abdomen.
Category 3 (Discussion of management): Further management may involve discussions with gastroenterology and surgery teams for potential consults.
-Risk:
Decisions were made regarding diagnostic testing with risks, including the CT scan. Medication management includes IV antibiotics and proton pump inhibitors. The patient is being admitted for further observation and management, and gastroenterology
or surgical evaluation may be needed.
DIAGNOSIS
1. Cholelithiasis (ICD-10: K80)
2. Duodenitis (ICD-10: K29.8)
3. Pancreatitis, unspecified (ICD-10: K85.90)
Phy Exam
Physical Exam
Physical Exam:
.
Course
Orders/Labs/Results
Orders:
Orders
01/21/25 12:39
Electrocardiogram (*1) Urgent
Reason for Study: Other
Other Reason for Exam: Possible Sepsis
Cardiac Monitoring- Treatment ONCE
EKG- Treatment ONCE
IV Insert/Care/Rem.- Treatment PRN
O2 Therapy [RESP] Urgent
Titrate/Wean O2 to maintain O2 sat greater than (%): 93
Special Instructions: TO MAINTAIN CONTINUOUS O2 SATS > OR = 93%
Pulse Ox/cont/shift [RESP] Urgent
Quantity: 1
Special Instructions: CONTINUOUS
01/21/25 12:58
Complete Blood Count/With Diff Urgent
Comprehensive Metabolic Panel Urgent
Lactic Acid Q4H
Comment: ON ICE, CANCEL 2ND ORDER IF FIRST LACTIC ACID LEVEL <2
Magnesium Urgent
Comment: ADD ON
Manual Differential Urgent
Blood Culture Q20M
LINDA Source: Blood/Venous
Specimen Description:
Comment: Urgent from separate sites. If patient screens positive for possible sepsis
INF RAPID [Influenza A+B Rapid Molecular] Urgent
LINDA Source: Nasal Swab
Specimen Description:
01/21/25 13:20
Acetaminophen [Tylenol] 650 mg PO NOW STA
01/21/25 Dinner
Regular
At Your Request: Full Participation
01/21/25 15:26
Urinalysis Reflex To Culture Urgent
Date Specimen was Collected: 01/14/25
Time Specimen was Collected: 12:39
Urine Microscopic Reflex Cult Urgent
Urine Culture Urgent
LINDA Source: U
Specimen Description:
Date Specimen was Collected: 01/14/25
Time Specimen was Collected: 12:39
01/21/25 17:04
0.9% Sodium Chloride 500 ml [Nss] 500 ml IV BOLUS
Acetaminophen [Tylenol] 1,000 mg PO NOW STA
01/21/25 17:18
Blood Culture Q20M
LINDA Source: Blood/Venous
Specimen Description:
Comment: Urgent from separate sites. If patient screens positive for possible sepsis
01/21/25 17:30
CefTRIAXone [Rocephin] 2,000 mg IV NOW STA
01/21/25 17:33
Sterile Water [Sterile Water For Injection] 20 ml .ROUTE .STK-MED
01/21/25 17:36
COVID-19 Antigen Urgent
Source: Nasal Swab
01/21/25 18:48
Potassium Chloride 10% Elixir [KCl Elixir] 40 meq PO NOW STA
01/21/25 18:49
Add On- LAB Urgent
Tests Added?: Mg
01/21/25 18:50
CR Chest - 2 Views Urgent
Comment:
Reason For Exam: fever
01/21/25 19:24
Admit/Transfer Patient As Directed
Co-Sign Provider:
Level of Care: Inpatient admission
Assign to:: Medical/Surgical
Physician / Group: delma
Diagnosis: covid
Reason for Hospitalization: covid
Expected length of stay greater than two midnights?: Yes
ELOS- Estimated Length of Stay in days: 2
I certify the patient meets the requirements for IP care: Yes
Code Status As Directed
Resuscitation Status: Do not resuscitate
Reached after discussion with pt or family/Healthcare POA: Yes
DNR Bracelet Application ONCE
PRN Pain Medication Management As Directed
May give lesser potent ordered pain med per pt: Yes
preference::
Protocol:: Medication orders for pain may be administered in a
manner that supports deferring to patient preference
when the pt is:
- Requesting an ordered lesser potent pain medication.
Least to most potent pain medications are defined
as: acetaminophen < NSAID < tramadol < opioids
(morphine, oxycodone, hydromorphone).
- Requesting a lesser dose of the same medication IF
ORDERED.
- Requesting a less intrusive route of administration
if both routes are prescribed by the provider (PO <
IV).
01/21/25 20:46
0.9% Sodium Chloride 1000 ml [Nss] 1,000 ml IV 100 mls/hr
Acetaminophen [Tylenol] 650 mg PO Q4HWA
01/21/25 20:46
Activity As Directed
Activity Level: As Tolerated
Vital Signs As Directed
Frequency: Per unit guidelines
DX Deep Vein Thrombosis Video Routine
01/22/25 06:00
Complete Blood Count/With Diff IN AM
Comprehensive Metabolic Panel IN AM
01/22/25 16:00
CefTRIAXone [Rocephin] 1,000 mg IV Q24H
01/22/25 18:00
Enoxaparin Sodium [Lovenox] 40 mg SC QPM
Abnormal Lab Results
01/21/25 01/21/25
12:58 15:26
Plt Count 30 L 10^3/uL
(130-400)
Abs Neuts (Manual) 7.5 H 10^3/uL
(1.4-6.5)
Segmented Neutrophils 41 L %
(42-75)
Band Neutrophils 54 H %
(0-3)
Lymphocytes (Manual) 1 L %
(20-51)
Potassium 3.4 L mmol/L
(3.5-5.1)
BUN 28 H mg/dl
(7-17)
Creatinine 1.3 H mg/dL
(0.6-1.0)
Glucose 127 H mg/dl
(70-99)
Lactic Acid 2.3 H mmol/L
(0.7-2.0)
Total Bilirubin 1.5 H mg/dl
(0.2-1.3)
AST 206 H U/L
(14-36)
ALT 46 H U/L
(0-35)
Alkaline Phosphatase 287 H U/L
(38-126)
Ur Occult Blood Reflex 4+ A
(Negative)
Leukocyte Esterase Rfl 2+ A
(Negative)
Urine RBC 3-6 A /HPF
(0-2)
Urine WBC (Reflex) >100 A /HPF
(0-5)
Urine Bacteria (Reflex) Many A
(Negative)
Urine Albumin (Reflex) 3+ A
(Neg - Trace)
01/21/25 12:58
01/21/25 12:58
Vital Signs
Initial and Last Documented VS:
Initial Vital Signs
Temp Pulse Resp BP Pulse Ox
102.2 F H 45 18 105/75 95
01/21/25 12:38 01/21/25 12:38 01/21/25 12:38 01/21/25 12:38 01/21/25 12:38
Last Documented Vital Signs
Temp Pulse Resp BP Pulse Ox
101.3 F H 118 16 129/74 99
01/21/25 23:04 01/21/25 21:05 01/21/25 21:05 01/21/25 21:05 01/21/25 21:05
*Pulse Oximetry
SaO2: 97
Oxygen Mode of Delivery: Room air
Patient hypoxic: no
*Critical Care Note
Total Time (30-74mins, 75-104mins- exclusive of procedures): Not Applicable
ED Attending Note
-
Portions of this chart may have been created with voice recognition software.� Occasional wrong word or��sound alike� substitutions may have occurred due to the inherent limitations of voice recognition software.
Discharge Plan
Departure
Patient Disposition: Admit
Date of Disposition: 01/21/25
Time of Disposition: 18:46
Admit to: Telemetry
Presentation/result/management discussed w/ accepting MD/DO: Hospitalist
Discharge Problem:
Urinary tract infection, Weakness, Thrombocytopenia, Waldenstrom macroglobulinemia
Interventions
Interventions:
*Risk Screen - Suicide Last Done: 01/21/25 20:52
*General Assessment Last Done: 01/21/25 17:04
*Neglect/Abuse Screening Last Done: 01/21/25 17:04
*ED- Fall Risk Assessment Last Done: 01/21/25 17:04
*ED COVID-19 Vaccine History Last Done: 01/21/25 20:52
*ED Influenza Vaccine History Last Done: 01/21/25 17:04
*Nursing Disposition Last Done: 01/21/25 20:40
OQ-Ovrzrr-Svkdwqtqgv Assessment Last Done: 01/21/25 17:04
Discharge Date and Time
Discharge Date/Time: 01/21/25 20:41
[2025-01-21] MEDS: KCL ELIXIR 40 MEQ PO (18:54)
[2025-01-21 19:23] LABS: Magnesium 2.0 mg/dl (1.6-2.3)
--- NOTE | 2025-01-21 19:26 | HPS.HSE ---
Family Physician
-
Family Physician: Amanda Vargas MD
Chief Complaint
-
weakness
History of Present Illness
79-year-old female past medical history of Waldenstr�m's macroglobulinemia on Rituxan, ovarian tumor s/p hysterectomy, presenting with 2 days of lethargy, sleeping a lot, dripping watery diarrhea, severe muscle fatigue. Patient did not have any
cough, shortness of breath, sore throat, bodyaches, urinary symptoms or abdominal pain or vomiting.
Her tested her for COVID at home and she was positive. He also tested positive this morning but he does not have any symptoms.
She denies smoking or alcohol use or drugs.
Medical History
Past Medical History
Past Medical History: Reports Other (Waldenstr�m's macroglobulinemia on Rituxan, ovarian tumor s/p hysterectomy,)
Past Surgical History: Reports Gynocological
Social History
Tobacco: Non-smoker
Alcohol: None
Drug: None
Family History
Family History: Not pertinent
Allergies / Home Medications
Allergies reflects when Allergies were last updated in [facility].
Home Medications with original date entered in [facility]
Allergy/Medication List:
Allergies
Allergy/AdvReac Type Severity Reaction Status Date / Time
diazepam Allergy Nausea Verified 01/21/25 12:32
Home Medications
No Meds [No Current Medications] 01/21/25
Review of Systems
-
History Source: Patient
A 12 point ROS was completed and negative except as noted: Yes
Constitutional: Reports No Symptoms
EENT: Reports No Symptoms
Respiratory: Reports See HPI
Cardiac: Reports No Symptoms
Abdomen/GI: Reports See HPI
: Reports No Symptoms
Musculoskeletal: Reports No Symptoms
Skin: Reports No Symptoms
Neurological: Reports No Symptoms
Endocrine: Reports No Symptoms
Hematologic/Lymphatic: Reports No Symptoms
Psych: Reports No Symptoms
Physical Exam
Vital Signs
Vital Signs
Temp Pulse Resp BP Pulse Ox
99.2 F 84 21 132/73 97
01/21/25 17:26 01/21/25 18:45 01/21/25 18:45 01/21/25 18:00 01/21/25 18:48
Physical Exam
General: Well Developed, Well Nourished and No Apparent Distress
HEENT: NormoCephalic, Moist mucous membranes and Atraumatic
Respiratory: Clear
Cardiac: S1/S2 and Regular Rhythm; No Murmur or Rub
GI: Soft, Non Tender, Non Distended and Normal Bowel Sounds; No Organomegaly
Rectal: Deferred by Provider
Musculoskeletal: No Clubbing, No Cyanosis and No Edema
Skin: No Rash
Neuro: Nonfocal/grossly intact
Laboratory Results
-
01/21/25 12:58
01/21/25 12:58
Laboratory Results
Lactic Acid 2.3 mmol/L (0.7-2.0) H 01/21/25 12:58
Lactic Acid Cancelled 01/21/25 12:58
Total Bilirubin 1.5 mg/dl (0.2-1.3) H 01/21/25 12:58
AST 206 U/L (14-36) H 01/21/25 12:58
ALT 46 U/L (0-35) H 01/21/25 12:58
Alkaline Phosphatase 287 U/L (38-126) H 01/21/25 12:58
Data Reviewed
-
Lab Data: Labs Reviewed by me
Old Records: Reviewed
Impression/Plan
-
IMPRESSION:
PLAN:
# Likely COVID infection
- Tested positive at home but negative here
- Fever 102
- Not hypoxic and no pulmonary symptoms
-Chest x-ray pending
- Stool studies if persistent diarrhea
# Possible UTI
-Fever 102.2
- Urinalysis shows greater than 100 WBC, +2 leukocyte esterase,
-Blood cultures pending
- Ceftriaxone
# Acute kidney injury
- IV fluids
Waldenstr�m's macroglobulinemia
- On Rituxan
Ovarian tumor status post hysterectomy
DNR/DNI
DVT prophylaxis�Lovenox
Regular diet
--- NOTE | 2025-01-21 20:45 | PTCARENOTE ---
Pt arrived to floor via ED stretcher. Pt ambulated to bed with an assist of one. Pt A&Ox3. Pt oral temp of 103.2F-- Tylenol administered. Otherwise, VSS. Pt oriented to room. Call ferreira within reach.
[2025-01-21 21:05] VITALS: BP 129/74
[2025-01-21] MEDS: NSS 1000 IV (21:26)
[2025-01-22] MEDS: TYLENOL 650 MG PO ×6 (00:42→20:43)
[2025-01-22] MEDS: NSS 1000 IV ×2 (06:01→20:45)
[2025-01-22 06:40] VITALS: BMI 17.8
[2025-01-22 07:55] VITALS: BP 121/59
[2025-01-22 08:32] LABS: ALT (SGPT) 37 U/L (0-35); AST (SGOT) 185 U/L (14-36); Albumin 2.9 g/dl (3.5-5.0); Alkaline Phosphatase 251 U/L (38-126); Blood Urea Nitrogen 32 mg/dl (7-17); Calcium 8.2 mg/dl (8.4-10.2); Carbon Dioxide 27 mmol/L (22-30); Chloride 105 mmol/L (98-107); Estimated Creatinine Clearance 23 ml/min; Glucose 87 mg/dl (70-99); Potassium 3.6 mmol/L (3.5-5.1); Sodium 136 mmol/L (135-145); Total Protein 5.1 g/dl (6.3-8.2); eGFR 38.27
--- NOTE | 2025-01-22 09:09 | W.PN.HOSP.TC ---
Today's Communication/Plan
-
Continue CTX and follow urine culture
Imodium for loose stools
Trend platelets
Supportive platelet transfusions if needed
Defer against antiviral for COVID at patient request
Assessment / Plan
Assessment / Plan
#High-grade fever
#COVID-positive
#Possible UTI
- Presented with weakness, temperature in the ED up to 102 �F
- Home COVID test positive though repeat here negative
- Chest x-ray was negative; flu testing was also negative
- UA consistent with UTI though no obvious symptoms
- Started on ceftriaxone after urine and blood cultures
Plan
- Continue CTX for now and follow cultures
- Hold off on antiviral as per patient preference
- Trend CBC and temperature curve
#Thrombocytopenia
- Likely secondary to Waldenstr�m's as well as reactive component from COVID and possible UTI
- Presented with platelets at 30, down to 24; last WNL in late 2023
- No bleeding events reported here or recently prior to arrival
- Order type and crossmatch, obtain consent for blood products
- Transfuse for platelets <10k, <50 K with bleeding
#Elevated creatinine
- Suspect CKD more so than SUNITA; last labs here with normal creatinine though in 2023
- Presented with creatinine 1.4, received IV fluids however creatinine up to 1.5
- Will order kidney and bladder ultrasound to rule out obstruction, assess for medical kidney disease
- Trend BMP and avoid nephrotoxins
#Waldenstr�m's macroglobulinemia
- Patient maintained on Rituxan regimen as outpatient
#Loose stool
- Likely due to COVID, low suspicion for infectious enteritis/colitis
- Start Imodium as needed
Diet: Regular
DVT: SCDs
Code: DNR
Dispo: PT consulted
Anticipated Discharge: 24 - 48 hours
Subjective/Interval History
-
Date of Service: January 22, 2025
Seen and examined at the bedside. No acute events reported overnight. AFVSS this morning
Platelet count remains low and downtrending from 30K-24K this morning. Creatinine and other labs otherwise stable
Denies any complaints this morning. Mentions the main reason she came in was weakness and loose stool with fecal incontinence over the last 2 to 3 days
Objective Data
-
Labs:
Laboratory Results
01/22/25
07:00
WBC Pending
Hgb Pending
Hct Pending
Plt Count Pending
Sodium 136
Potassium 3.6
Chloride 105
Carbon Dioxide 27
BUN 32 H
Creatinine 1.4 H
Glucose 87
Calcium 8.2 L
Total Bilirubin 2.0 H
AST 185 H
ALT 37 H
Alkaline Phosphatase 251 H
Vital Signs:
Vital Signs
Temp Pulse Resp BP Pulse Ox
98.6 F 69 16 121/59 99
01/22/25 07:55 01/22/25 07:55 01/22/25 07:55 01/22/25 07:55 01/22/25 07:55
I&O
01/21/25 01/22/25 01/23/25
06:59 06:59 06:59
Intake Total 240 / 240
Balance 240 / 240
Review of Systems
-
History Source: Patient
All other systems: Reviewed and negative
Physical Exam
-
General: Well Developed, No Apparent Distress, Appears Chronically Ill and Cachectic
HEENT: Normocephalic, Atraumatic, Moist Mucous Membranes and Anicteric
Respiratory: Clear to Auscultation and Non Labored Respirations; Negative Accessory Resp Muscle Use
Cardiac: Regular Rhythm and S1/S2; Negative Murmur, Rub or Gallop
GI: Soft, Nontender, Nondistended and Normal Bowel Sounds
Musculoskeletal: No Clubbing, No Cyanosis and No Edema
Skin: Warm and Dry; Negative Rash or Jaundice
Neuro: AO x 3, Nonfocal/Grossly Intact and Central Nerve's Intact; Negative Tremors
Psych: Calm
Data Reviewed
-
Labs: Labs Reviewed by me, Discussed with Nurse and Discussed with Patient
[2025-01-22 11:16] LABS: Hematocrit 41.1 % (37.0-47.0); Hemoglobin 13.3 g/dL (12.0-16.0); Mean Corp Hgb Conc. 32.4 g/dL (33.0-37.0); Mean Corpuscular Volume 90.3 fL (81.0-99.0); Platelet Count 24 10^3/uL (130-400); Red Cell Dist. Width 14.3 % (11.5-14.5)
[2025-01-22 11:19] LABS: Absolute Neutrophils -Man Diff 4.3 10^3/uL (1.4-6.5)
[2025-01-22 11:20] LABS: Normal RBC Morphology Yes; Platelets Checked Yes; Total Cells Counted 100
[2025-01-22] MEDS: STERILE WATER FOR INJECTION 10 ML IV (16:03)
[2025-01-22] MEDS: ROCEPHIN 1000 MG IV (16:03)
[2025-01-22 16:18] VITALS: BP 118/62
[2025-01-22 23:41] VITALS: BP 108/62
[2025-01-22] MEDS: TYLENOL PO (23:58)
[2025-01-23] MEDS: TYLENOL 650 MG PO ×2 (04:01→20:52)
[2025-01-23 06:30] LABS: Hematocrit 41.4 % (37.0-47.0); Hemoglobin 13.5 g/dL (12.0-16.0); Mean Corp Hgb Conc. 32.6 g/dL (33.0-37.0); Mean Corpuscular Volume 86.6 fL (81.0-99.0); Platelet Count 39 10^3/uL (130-400); Red Cell Dist. Width 14.6 % (11.5-14.5)
[2025-01-23 07:49] VITALS: BP 125/64
--- NOTE | 2025-01-23 08:22 | W.PN.HOSP.TC ---
Today's Communication/Plan
-
Transition to Keflex
Supportive care for COVID
PT assessment
Ensure with meals
Assessment / Plan
Assessment / Plan
#High-grade fever
#COVID-positive
#Possible UTI
- Presented with weakness and intermittent loose stools at home, temperature in the ED up to 102 �F
- Home COVID test positive though repeat here negative; Chest x-ray was negative; flu testing was also negative
- Started on IV ceftriaxone upon arrival; urine culture with pansensitive E. coli
- Transition to Keflex to complete 5 to 7 days of antibiotics
- Hold off on antiviral as per patient preference
- Trend CBC and temperature curve
#Thrombocytopenia
- Likely secondary to Waldenstr�m's as well as reactive component from COVID and possible UTI
- Presented with platelets at 30, down to 24 at lowest though back up to 39 today; last WNL in late 2023
- No bleeding events reported here or recently prior to arrival; blood consent and type and crossmatch completed
- Transfuse for platelets <10k, <50 K with bleeding
#Elevated creatinine
- Suspect CKD more so than SUNITA; last labs here with normal creatinine though in 2023
- Presented with creatinine 1.4, received IV fluids with creatinine trend 1.4�1.5�1.2
- Will order kidney and bladder ultrasound to rule out obstruction, assess for medical kidney disease
- Trend BMP and avoid nephrotoxins
#Waldenstr�m's macroglobulinemia
- Patient maintained on Rituxan regimen as outpatient
- No signs of vaso-occlusive or hyperviscosity findings at this time
#Loose stool
- Likely due to COVID, low suspicion for infectious enteritis/colitis
- Started Imodium as needed
#Severe protein calorie malnutrition
- BMI here 17.8, weight 45.6 kg
- Likely has associated deconditioning
- Ordered Ensure with meals twice daily
- Consider outpatient estimator referral
Diet: Regular
DVT: SCDs
Code: DNR
Dispo: PT consult pending
Anticipated Discharge: Within 24 hours
Subjective/Interval History
-
Date of Service: January 23, 2025
Seen and examined at the bedside. No acute events reported overnight. AFVSS this morning
Labs with platelets uptrending to 39K from 20K. White count down from 4.7-3.6. Potassium 3.3 this morning. Creatinine and hemoglobin stable. Urine culture with pansensitive E. coli
Denies any new complaints today. States she still feels some unsteadiness when ambulating though improved. Denies any bleeding
Objective Data
-
Labs:
Laboratory Results
01/23/25
05:47
WBC 3.6 L
Hgb 13.5
Hct 41.4
Plt Count 39 L D
Vital Signs:
Vital Signs
Temp Pulse Resp BP Pulse Ox
98.4 F 74 16 125/64 96
01/23/25 07:49 01/23/25 07:49 01/23/25 07:49 01/23/25 07:49 01/23/25 07:49
I&O
01/22/25 01/23/25 01/24/25
06:59 06:59 06:59
Intake Total 240 / 240 1140 / 1140
Balance 240 / 240 1140 / 1140
Review of Systems
-
History Source: Patient
All other systems: Reviewed and negative
Physical Exam
-
General: Well Developed, No Apparent Distress, Appears Chronically Ill and Cachectic
HEENT: Normocephalic, Atraumatic, Moist Mucous Membranes, Anicteric and PERRLA
Respiratory: Clear to Auscultation and Non Labored Respirations; Negative Accessory Resp Muscle Use
Cardiac: Regular Rhythm and S1/S2; Negative Murmur, Rub or Gallop
GI: Soft, Nontender, Nondistended and Normal Bowel Sounds
Musculoskeletal: No Clubbing, No Cyanosis and No Edema
Skin: Warm and Dry; Negative Rash
Neuro: AO x 3, Nonfocal/Grossly Intact and Central Nerve's Intact
Psych: Calm
[2025-01-23 08:36] LABS: Absolute Neutrophils -Man Diff 3.4 10^3/uL (1.4-6.5)
[2025-01-23 08:37] LABS: Acanthocytes 2+; Hypochromasia 1+; Normal RBC Morphology No; Platelets Checked Yes; Polychromasia 1+
[2025-01-23 08:38] LABS: Burr Cells 1+
[2025-01-23 08:39] LABS: Blood Urea Nitrogen 35 mg/dl (7-17); Calcium 8.6 mg/dl (8.4-10.2); Carbon Dioxide 23 mmol/L (22-30); Chloride 108 mmol/L (98-107); Estimated Creatinine Clearance 27 ml/min; Glucose 100 mg/dl (70-99); Potassium 3.3 mmol/L (3.5-5.1); Sodium 133 mmol/L (135-145); eGFR 46.05
[2025-01-23 09:57] LABS: Total Cells Counted 100
[2025-01-23] MEDS: TYLENOL PO ×3 (10:17→17:10)
[2025-01-23] MEDS: KCL 40 MEQ PO ×2 (10:19→14:36)
[2025-01-23] MEDS: KEFLEX 500 MG PO ×2 (11:09→20:51)
[2025-01-23] MEDS: NSS 1000 IV (14:38)
--- NOTE | 2025-01-23 14:46 | CM ---
CM spoke with pt on phone [phone]
Pt resides with her spouse in a [place] with 2TE
Pt is independent with her ADLs, no ADs, drives+
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
Pt has a WW from prior hip surgery and hx with [facility]
PCP- Manjula Bales
Rx- Ed
Pt is COVID+
PT/OT pending, she is on on RA
Discharge Disposition- home, watch for VN needs
[2025-01-23 15:30] VITALS: BP 120/65
[2025-01-23 23:50] VITALS: BP 104/74
[2025-01-24] MEDS: TYLENOL PO ×4 (01:11→20:21)
[2025-01-24 07:55] VITALS: BP 145/82
[2025-01-24 08:33] LABS: Hematocrit 42.3 % (37.0-47.0); Hemoglobin 14.1 g/dL (12.0-16.0); Mean Corp Hgb Conc. 33.3 g/dL (33.0-37.0); Mean Corpuscular Volume 86.5 fL (81.0-99.0); Platelet Count 52 10^3/uL (130-400); Red Cell Dist. Width 14.9 % (11.5-14.5)
[2025-01-24] MEDS: NSS IV ×2 (09:15→09:28)
[2025-01-24] MEDS: KEFLEX 500 MG PO ×2 (09:15→19:44)
[2025-01-24] MEDS: TYLENOL 650 MG PO ×2 (09:19→13:09)
[2025-01-24 10:07] LABS: Blood Urea Nitrogen 30 mg/dl (7-17); Calcium 9.3 mg/dl (8.4-10.2); Carbon Dioxide 25 mmol/L (22-30); Chloride 108 mmol/L (98-107); Estimated Creatinine Clearance 33 ml/min; Glucose 117 mg/dl (70-99); Magnesium 2.0 mg/dl (1.6-2.3); Potassium 4.2 mmol/L (3.5-5.1); Sodium 136 mmol/L (135-145); eGFR 57.31
[2025-01-24 11:35] LABS: Absolute Neutrophils -Man Diff 5.0 10^3/uL (1.4-6.5); Total Cells Counted 100; Toxic Granulation 1+
[2025-01-24 11:36] LABS: Normal RBC Morphology Yes; Platelets Checked Yes
[2025-01-24 11:55] VITALS: BMI 17.8
--- NOTE | 2025-01-24 12:03 | W.PN.HOSP.TC ---
Today's Communication/Plan
-
Await LFTS
Repeat Covid
Continue AB for now
Assessment / Plan
Assessment / Plan
79-year-old female with generalized weakness. and patient both tested positive for COVID at home
Ultrasound of the kidney-simple right renal cyst. No renal collecting system dilatation. Confirmation of bilateral ureteral jets. Small volume layering urinary bladder debris
Chest x-ray 01/22/2024-no acute cardiopulmonary process.
1 low stool last night soft bowel movements. No diarrhea. No rashes. No cough with congestion no abdominal pain
CVS: S1-S2 normal
Chest: CTA B/L
Abdomen: Soft, NT / Bowel sounds present
Extremities: No edema
# Fevers-likely secondary to COVID-19 but Test was negative here
Blood cultures negative
Repeat COVID test
If LFTs are elevated we will also get ultrasound of the abdomen
# COVID-19 infection
COVID test at home was positive but negative here. Chest x-ray was negative influenza was also negative.
Holding off on antivirals per patient preference
# UTI-on ceftriaxone
# Loose stools
# Thrombocytopenia-likely secondary to Waldenstr�m's macroglobulinemia, and viral dyijhtaxd-thqnou-nk. Platelets were normal in late 2023. Platelets are improving
# Leukopenia improved
# Hypokalemia-improved
# Hypophosphatemia-replace
# Elevated LFTs-follow. If elevated will check ultrasound
# SUNITA-improving
# Waldenstr�m's macroglobulinemia-maintained on Rituxan as outpatient
# Severe protein calorie malnutrition
# Hypoalbuminemia
# DVT prophylaxis-SCDs
# DNR
D/W RN
Part of this note was created using voice recognition system. Occasional wrong word or��sound alike� substitutions may have inadvertently occurred due to the inherent limitations of voice recognition software. If noted kindly bring it to my
attention for correction.
Anticipated Discharge: 24 - 48 hours
Subjective/Interval History
-
Date of Service: January 24, 2025
Objective Data
-
Labs:
Laboratory Results
01/24/25
07:22
WBC 5.9
Hgb 14.1
Hct 42.3
Plt Count 52 L D
Sodium 136
Potassium 4.2 D
Chloride 108 H
Carbon Dioxide 25
BUN 30 H
Creatinine 1.0
Glucose 117 H
Calcium 9.3
Total Bilirubin Pending
AST Pending
ALT Pending
Alkaline Phosphatase Pending
Vital Signs:
Vital Signs
Temp Pulse Resp BP Pulse Ox
100.7 F H 86 16 145/82 95
01/24/25 07:55 01/24/25 07:55 01/24/25 07:55 01/24/25 07:55 01/24/25 09:00
I&O
01/23/25 01/24/25 01/25/25
06:59 06:59 06:59
Intake Total 1140 / 1140 960 / 960 600 / 600
Balance 1140 / 1140 960 / 960 600 / 600
--- NOTE | 2025-01-24 12:05 | CM ---
Spoke with patient via phone.
She said that at discharge she does not want a VN
Her Asher will drive her home.
PT indicates no needs .
PLAN Home no needs
[2025-01-24 12:29] LABS: ALT (SGPT) 36 U/L (0-35); AST (SGOT) 142 U/L (14-36); Albumin 2.8 g/dl (3.5-5.0); Alkaline Phosphatase 507 U/L (38-126); Total Protein 5.1 g/dl (6.3-8.2)
[2025-01-24] MEDS: NEUTRA-PHOS POWDER PACKET 250 MG PO ×3 (13:08→21:27)
[2025-01-24 13:20] LABS: COVID-19 Antigen Negative (Negative)
--- NOTE | 2025-01-24 13:32 | PTCARENOTE ---
Patient educated on use of incentive spirometer; patient verbalized understanding and demonstrated correctly.
[2025-01-24 15:40] VITALS: BP 139/85
[2025-01-24 23:51] VITALS: BP 146/86
[2025-01-25] MEDS: TYLENOL PO ×4 (00:41→15:39)
[2025-01-25 06:46] LABS: Hematocrit 39.3 % (37.0-47.0); Hemoglobin 13.4 g/dL (12.0-16.0); Mean Corp Hgb Conc. 34.1 g/dL (33.0-37.0); Mean Corpuscular Volume 85.2 fL (81.0-99.0); Platelet Count 47 10^3/uL (130-400); Red Cell Dist. Width 15.3 % (11.5-14.5)
[2025-01-25 06:59] LABS: ALT (SGPT) 40 U/L (0-35); AST (SGOT) 137 U/L (14-36); Albumin 2.7 g/dl (3.5-5.0); Alkaline Phosphatase 503 U/L (38-126); Blood Urea Nitrogen 26 mg/dl (7-17); Calcium 9.0 mg/dl (8.4-10.2); Carbon Dioxide 27 mmol/L (22-30); Chloride 107 mmol/L (98-107); Estimated Creatinine Clearance 37 ml/min; Glucose 91 mg/dl (70-99); Potassium 3.9 mmol/L (3.5-5.1); Sodium 135 mmol/L (135-145); Total Protein 4.9 g/dl (6.3-8.2); eGFR > 60.00
[2025-01-25 07:45] VITALS: BP 154/87
[2025-01-25] MEDS: KEFLEX 500 MG PO (09:28)
[2025-01-25] MEDS: NEUTRA-PHOS POWDER PACKET 250 MG PO (09:28)
--- NOTE | 2025-01-25 09:59 | W.PN.HOSP.TC ---
Today's Communication/Plan
-
ID eval
Hepatitis panel
MRI/MRCP
Follow LFTs
Repeat COVID test in the morning to take off isolation.
Assessment / Plan
Assessment / Plan
79-year-old female with generalized weakness. and patient both tested positive for COVID at home
Ultrasound of the kidney-simple right renal cyst. No renal collecting system dilatation. Confirmation of bilateral ureteral jets. Small volume layering urinary bladder debris
Chest x-ray 01/22/2024-no acute cardiopulmonary process.
USS abdomen- Normal appearance of the gallbladder with no evidence for biliary ductal dilation.No focal abnormality of the liver. Not mentioned above, the main portal vein is patent with normal direction of flow.Simple cyst arising in the upper pole
the right kidney.
CVS: S1-S2 normal
Chest: CTA B/L
Abdomen: Soft, NT / Bowel sounds present
Extremities: No edema
# Elevated LFTs- USS with out acute changes. Will get hepatitis panel and an MRI/MRCP. NO RUQ pain.
If continues to rise will request GI eval.
# Fevers-likely secondary to COVID-19 but Test was negative here
Blood cultures negative
Repeat COVID test neg, One more tomorrow per infection prevention.
If LFTs are elevated we will also get ultrasound of the abdomen
ID eval.
# COVID-19 infection
COVID test at home was positive but negative here times 2. Chest x-ray was negative influenza was also negative.
Holding off on antivirals per patient preference
# UTI-on ceftriaxone
# Loose stools
# Thrombocytopenia-likely secondary to Waldenstr�m's macroglobulinemia, and viral uhljndinc-hjppep-bn. Platelets were normal in late 2023.
# Leukopenia improved
# Hypokalemia-improved
# Hypophosphatemia-replaced
# SUNITA-improving
# Waldenstr�m's macroglobulinemia-maintained on Rituxan as outpatient
# Severe protein calorie malnutrition
# Hypoalbuminemia
# DVT prophylaxis-SCDs
# DNR
D/W RN
Part of this note was created using voice recognition system. Occasional wrong word or��sound alike� substitutions may have inadvertently occurred due to the inherent limitations of voice recognition software. If noted kindly bring it to my
attention for correction.
Anticipated Discharge: 24 - 48 hours
Subjective/Interval History
-
Date of Service: January 25, 2025
Objective Data
-
Labs:
Laboratory Results
01/25/25
06:06
WBC 6.8
Hgb 13.4
Hct 39.3
Plt Count 47 L
Sodium 135
Potassium 3.9
Chloride 107
Carbon Dioxide 27
BUN 26 H
Creatinine 0.9
Glucose 91
Calcium 9.0
Total Bilirubin 2.8 H
AST 137 H
ALT 40 H
Alkaline Phosphatase 503 H
Vital Signs:
Vital Signs
Temp Pulse Resp BP Pulse Ox
99.4 F 94 16 154/87 93
01/25/25 07:45 01/25/25 07:45 01/25/25 07:45 01/25/25 07:45 01/25/25 07:45
I&O
01/24/25 01/25/25 01/26/25
06:59 06:59 06:59
Intake Total 960 / 960 1080 / 1080
Balance 960 / 960 1080 / 1080
--- NOTE | 2025-01-25 11:22 | CON.ID ---
Consultation
-
Date/Time Consultation Requested: 01/25/25 10:59
Date/Time Consultation Performed: 01/25/25 11:23
Requesting Provider: Dr Collins
Performing Provider: Dr Blount
Reason for Consultation: fever, elevated lft
Chief Complaint / Past History
Chief Complaint
weakness
History of Present Illness
Ms Zapata is a 79 year old female with Waldenstr�m's macroglobulinemia on Rituxan, ovarian tumor s/p hysterectomy who presented here for 2 days of severe sore throat, lethargy, diarrhea, muscle fatigue. No cough, shortness of breath, abdominal pain,
vomiting, dysuria. She does note urinary urgency, no frequency. Of note a home COVID test was positive, however covid ag testing here was negative 01/21 and 01/24. Note that her also tested positive for covid at home but was asymptomatic.
Note that patient spends a lot of time gardening and hiking. Reports she does tick checks and has not seen
Since arrival here she was initially febrile to a tmax of 103.2, bp stable, wbc 7.9, hgb 15, plt 30, L shift noted, na 136, cr 1.3 from her baseline of 0.9, lactic acid 2.3,t bili 1.5, ast 206, alt 46, alk phos 287, UA >100 wbc/hpf and mnay
bacteria, hep A/B/C sent in progress, 01/21 CXR no acute CP process, renal us 01/22 no hydronephrosis or stones, 01/25 abd US: normal GB and no biliary ductal dilatation, blood cultures x2 no growth at 72 hours, urine culture 100 K E coli. She was
started on ceftriaxone on 01/21 and 01/23 switched to cephalexin 500 mg PO BID. Her course has been notable for resolution of the SUNITA. She has been on PRN imodium for loose stool with improvement. Yesterday 01/24 she had a relapse of fevers to
100.7. She reports ongoing sore throat without dysphagia. No: headche, sinus tenderness, cough, sputum production, nausea, vomiting, dysuria, frequency, new rashes or new joint pains. She reports that fatigue is ongoing. She has urinary urgency.
An MRCP is planned. She is currently on ceftriaxone. ID is consulted for assistance with management.
Past History
Additional Past Medical History:
as per hpi, endometriosis
Additional Past Surgical History:
appendectomy and about six laparoscopic surgeries for endometriosis, aimed at addressing abdominal adhesions and endometrial implants. She ultimately underwent a hysterectomy
right hip replacement
Allergy History:
diazepam Allergy (Verified 01/21/25 12:32)
Nausea
Medications Reviewed: Yes
Social History
Tobacco: Non-Smoker
Alcohol: None
Drug: None
Family History
Family History: Not Pertinent
Review of Systems
Review of Systems
Constitutional: Reports No Symptoms
EENT: Reports No Symptoms
Respiratory: Reports See HPI
Cardiac: Reports No Symptoms
Abdomen/GI: Reports See HPI
: Reports No Symptoms
Musculoskeletal: Reports No Symptoms
Skin: Reports No Symptoms
Neurological: Reports No Symptoms
Endocrine: Reports No Symptoms
Hematologic/Lymphatic: Reports No Symptoms
Psych: Reports No Symptoms
Vital Signs
Temp Pulse Resp BP Pulse Ox
99.4 F 94 16 154/87 93
01/25/25 07:45 01/25/25 07:45 01/25/25 07:45 01/25/25 07:45 01/25/25 07:45
Physical Exam
Lab / Diagnostic Study Results
01/25/25 06:06
01/25/25 06:06
Total Counted 100 01/24/25 07:22
Abs Neuts (Manual) 5.0 10^3/uL (1.4-6.5) 01/24/25 07:22
Segmented Neutrophils 71 % (42-75) 01/24/25 07:22
Band Neutrophils 14 % (0-3) H D 01/24/25 07:22
Lymphocytes (Manual) 6 % (20-51) L 01/24/25 07:22
Lactic Acid 2.3 mmol/L (0.7-2.0) H 01/21/25 12:58
Lactic Acid Cancelled 01/21/25 12:58
Ur Squamous Epith Cells 6-10 /LPF (Few) 01/21/25 15:26
Microbiology Results
Micro:
01/21/25 17:18 Blood Culture - Preliminary
Blood/Venous No Growth in 72 hours- Final report to follow
01/21/25 12:58 Blood Culture - Preliminary
Blood/Venous No Growth in 72 hours- Final report to follow
01/21/25 15:26 Urine Culture - Final
Urine Escherichia coli
01/21/25 12:58 Influenza Types A & B (CAROLEE) - Final
Nasal Swab Negative for Influenza A & B, NAAT
Negative results must be combined with clinical observations
and patient history.
Nucleic Acid Amplification test (NAAT)performed on the
[employer] platform.
Assessment / Plan
Fever
Immunosuppression - Rituximab
Waldenstr�m's macroglobulinemia
UTI
Recent COVID Infection
- blood cultures x2 no growth to date
- covid ag negative 01/21 and 01/24 - isolation per infection prevention
- urine culture 100K E coli and pyuria; she does relate urinary frequency
- note that with improving renal function keflex was underdosed, may explain the relapse of fevers
- patient also with transaminitis, low platelets, extensive time hiking, tick born infection also on the differential
- switch to doxycycyline 100 mg PO BID - coverage for both UTI and possible tick born infection - observe overnight
[2025-01-25] MEDS: TYLENOL 650 MG PO ×3 (11:29→23:44)
[2025-01-25] MEDS: ROCEPHIN 1000 MG IV (11:29)
[2025-01-25] MEDS: STERILE WATER FOR INJECTION 10 ML IV (11:31)
[2025-01-25 11:40] LABS: Hepatitis B Surface Antigen Negative (Negative)
[2025-01-25] MEDS: ANESTHETIC LOZENGE 1 LOZENGE PO (11:53)
[2025-01-25 11:57] LABS: Hepatitis A Antibody, Total Positive (Negative); Hepatitis C Antibody Negative (Negative)
[2025-01-25 15:35] VITALS: BP 121/75
[2025-01-25] MEDS: VIBRAMYCIN 100 MG PO ×2 (15:54→21:00)
[2025-01-25 16:09] VITALS: BP 121/75; PULSE 80; O2SAT 96
--- NOTE | 2025-01-25 21:56 | W.PN.UPDATE ---
Update Note
Progress Note Update
Asked to evaluate patient for sores on tongue and sore throat. Patient states sores on her tongue are from a broken tooth. On assessment, sores appear to be small, fluid-filled blisters, whitish in appearance, covering the front of her tongue.
Tongue appears to be dry. Patient appears to have painful swallowing but does states pain with swallowing has gotten better.
TT'd ID, Dr. Blount, who is following, appreciate her review and recommendations. Nystatin ordered as recommended.
[2025-01-25 23:35] VITALS: BP 148/77
[2025-01-26] MEDS: TYLENOL PO ×2 (04:39→09:56)
[2025-01-26 07:43] LABS: Hematocrit 40.4 % (37.0-47.0); Hemoglobin 13.4 g/dL (12.0-16.0); Mean Corp Hgb Conc. 33.2 g/dL (33.0-37.0); Mean Corpuscular Volume 87.3 fL (81.0-99.0); Red Cell Dist. Width 15.9 % (11.5-14.5)
[2025-01-26 07:45] VITALS: BP 132/79
[2025-01-26 08:10] LABS: Platelet Count 65 10^3/uL (130-400)
[2025-01-26 08:11] LABS: Absolute Neutrophils -Man Diff 8.2 10^3/uL (1.4-6.5); Normal RBC Morphology No; Platelets Checked Yes
[2025-01-26 08:12] LABS: Acanthocytes 1+; Hypochromasia 1+; Polychromasia 1+; Total Cells Counted 100
[2025-01-26 08:14] LABS: ALT (SGPT) 42 U/L (0-35); AST (SGOT) 117 U/L (14-36); Albumin 2.8 g/dl (3.5-5.0); Alkaline Phosphatase 518 U/L (38-126); Blood Urea Nitrogen 28 mg/dl (7-17); Calcium 9.4 mg/dl (8.4-10.2); Carbon Dioxide 29 mmol/L (22-30); Chloride 105 mmol/L (98-107); Estimated Creatinine Clearance 33 ml/min; Glucose 92 mg/dl (70-99); Magnesium 1.8 mg/dl (1.6-2.3); Potassium 4.2 mmol/L (3.5-5.1); Sodium 134 mmol/L (135-145); Total Protein 5.1 g/dl (6.3-8.2); eGFR 57.31
[2025-01-26 08:49] LABS: COVID-19 Antigen Negative (Negative)
[2025-01-26] MEDS: VIBRAMYCIN 100 MG PO ×2 (09:35→20:17)
[2025-01-26] MEDS: MYCOSTATIN ORAL SUSPENSION 5 ML PO ×4 (09:35→21:53)
--- NOTE | 2025-01-26 11:01 | W.PN.HOSP.TC ---
Today's Communication/Plan
-
MRI/MRCP
Assessment / Plan
Assessment / Plan
79-year-old female with generalized weakness. and patient both tested positive for COVID at home
Ultrasound of the kidney-simple right renal cyst. No renal collecting system dilatation. Confirmation of bilateral ureteral jets. Small volume layering urinary bladder debris
Chest x-ray 01/22/2024-no acute cardiopulmonary process.
USS abdomen- Normal appearance of the gallbladder with no evidence for biliary ductal dilation.No focal abnormality of the liver. Not mentioned above, the main portal vein is patent with normal direction of flow.Simple cyst arising in the upper pole
the right kidney.
Oral Thrush
CVS: S1-S2 normal
Chest: CTA B/L
Abdomen: Soft, NT / Bowel sounds present, No RUQ tenderness
Extremities: Trace edema
# Fevers-likely secondary to Vital infection Vs UTI
COVID-19 Test was negative here times 3
Blood cultures negative
ID eval appreciated
# Oral Thrush- Nystatin
# Elevated LFTs- USS with out acute changes. Will get hepatitis panel and an MRI/MRCP. NO RUQ pain.
? Other Viral
MRI/MRCP- If no answers get GI eval.
# UTI-Doxy
# Loose stools-Resolved
# Thrombocytopenia-likely secondary to Waldenstr�m's macroglobulinemia, and viral [id number]. Platelets were normal in late 2023. Trending up.
# Leukopenia improved
# Hypokalemia-improved
# Hypophosphatemia-replaced
# SUNITA-improved
# Waldenstrom's macroglobulinemia-maintained on Rituxan as outpatient
# Severe protein calorie malnutrition- ensure
# Hypoalbuminemia
# DVT prophylaxis-SCDs
# DNR
D/W RN at bed side
Pt Declined any communication with family.
Part of this note was created using voice recognition system. Occasional wrong word or��sound alike� substitutions may have inadvertently occurred due to the inherent limitations of voice recognition software. If noted kindly bring it to my
attention for correction.
Anticipated Discharge: 24 - 48 hours
Subjective/Interval History
-
Date of Service: January 26, 2025
Objective Data
-
Labs:
Laboratory Results
01/26/25
07:16
WBC 13.7 H
Hgb 13.4
Hct 40.4
Plt Count 65 L D
Sodium 134 L
Potassium 4.2
Chloride 105
Carbon Dioxide 29
BUN 28 H
Creatinine 1.0
Glucose 92
Calcium 9.4
Total Bilirubin 1.6 H D
AST 117 H
ALT 42 H
Alkaline Phosphatase 518 H
Vital Signs:
Vital Signs
Temp Pulse Resp BP Pulse Ox
98.3 F 75 16 132/79 92
01/26/25 07:45 01/26/25 07:45 01/26/25 07:45 01/26/25 07:45 01/26/25 07:45
I&O
01/25/25 01/26/25 01/27/25
06:59 06:59 06:59
Intake Total 1080 / 1080 1320 / 1320
Balance 1080 / 1080 1320 / 1320
--- NOTE | 2025-01-26 11:13 | W.PN.ID1 ---
Addendum entered and electronically signed by Shannan Blount MD 01/27/25 16:32:
Inadvertently updated my 01/26 note and entered late.
Comments re: serologies and Immunoglobulins are from 01/27
Original Note:
Date of Service
Date of Service: January 26, 2025
Today's Communication
- Discussed sending anaplasma, ehrlichia, lyme serologies with patient, she would also need to get convalescent serologies in two weeks and the acute serologies wouldnt change my management at this time. We agreed to treat her empirically as she is
already improving
- unclear if low IgG and elevated IgM levels are due to rituximab, acute infection or other differential, suggest outpatient follow up with her finish sander and repeat levels at a later date
- continue doxycycline 100 mg PO BID x2 weeks 01/25-02/07
Oral Thrush
- nystatin swish and swallow x 7days
Stable for dc from ID perspective
Assessment / Plan
Fever - resolved
Leukocytosis
Immunosuppression - Rituximab
Waldenstr�m's macroglobulinemia
Transaminitis - resolving
UTI
Recent COVID Infection
- blood cultures x2 no growth to date
- covid ag negative 01/21, 01/24, 01/26 negative taken off of isolation
- urine culture 100K E coli and pyuria; she does relate urinary frequency
- note that with improving renal function keflex was underdosed, may explain the relapse of fevers 01/24
- patient also with transaminitis, low platelets, extensive time hiking, and an embeded tick about 10 days ago tick born infection also on the differential
- Discussed sending anaplasma, ehrlichia, lyme serologies with patient, she would also need to get convalescent serologies in two weeks and the acute serologies wouldnt change my management at this time. We agreed to treat her empirically as she is
already improving
- unclear if low IgG and elevated IgM levels are due to rituximab, acute infection or other differential, suggest outpatient follow up with her finish sander and repeat levels at a later date
- continue doxycycline 100 mg PO BID x2 weeks 01/25-02/07
Oral Thrush
- nystatin swish and swallow x 7days
Stable for dc from ID perspective
Chief Complaint
-: Fever and UTI
Subjective / Review of Systems
no further fevers
bp stable
started on nystatin swish and swallow overnight
reports she has less malaise, in good spirits
much less sore throat
Vital Signs / Physical Exam
Vital Signs
Vital Signs
Temp Pulse Resp BP Pulse Ox
98.3 F 75 16 132/79 92
01/26/25 07:45 01/26/25 07:45 01/26/25 07:45 01/26/25 07:45 01/26/25 07:45
Physical Exam
Constitutional: No Acute Distress
Cardiovascular: Regular Rate and S1/S2; Negative Murmur or Rub
Pulmonary: Clear and Symmetric; Negative Wheezes or Rales
Gastrointestinal: Soft, Non Tender, Non Distended and Normal Bowel Sounds
Skin: Warm and Dry; Negative Rash or Jaundice
Objective Data
Lab Data
Lab Results
01/26/25 07:16
01/26/25 07:16
Estimated Creat Clear 33 ml/min 01/26/25 07:16
Lactic Acid 2.3 mmol/L (0.7-2.0) H 01/21/25 12:58
Lactic Acid Cancelled 01/21/25 12:58
Total Bilirubin 1.6 mg/dl (0.2-1.3) H D 01/26/25 07:16
AST 117 U/L (14-36) H 01/26/25 07:16
ALT 42 U/L (0-35) H 01/26/25 07:16
Alkaline Phosphatase 518 U/L (38-126) H 01/26/25 07:16
Most recent labs reviewed.
Micro Results:
01/21/25 17:18 Blood Culture - Preliminary
Blood/Venous No Growth in 4 days- Final report to follow
01/21/25 12:58 Blood Culture - Preliminary
Blood/Venous No Growth in 4 days- Final report to follow
01/21/25 15:26 Urine Culture - Final
Urine Escherichia coli
01/21/25 12:58 Influenza Types A & B (CAROLEE) - Final
Nasal Swab Negative for Influenza A & B, NAAT
Negative results must be combined with clinical observations
and patient history.
Nucleic Acid Amplification test (NAAT)performed on the
[employer] platform.
--- NOTE | 2025-01-26 15:14 | PN.CDI ---
Addendum entered and electronically signed by Keshav Collins MD 01/26/25 15:40:
Documentation is complete at this time.
Original Note:
CDI
- -
CDI:
Physician Documentation Request
Admit Date: 01/21/25 19:[address] Collins,
[facility] is using an adapted version of the 2016 Third International Consensus Definitions for Sepsis and Septic Shock (Sepsis-3) where sepsis is defined as life threatening organ dysfunction caused by a deregulated host response to infection.
Please reference the official [facility] Sepsis Recognition Tool for further information, which can be found on the Intranet under Infection Prevention.
Patient admitted with UTI.
01/26 PN, 'UTI-Doxy....Thrombocytopenia-likely secondary to Waldenstr�m's macroglobulinemia, and viral [id number]-vd.... SUNITA-improved.'
Based on your medical judgment, can you please clarify whether or not the above organ dysfunction is related to or due to sepsis?
-- Sepsis due to UTI with organ dysfunction of thrombocytopenia and SUNITA.
-- Sepsis due to UTI with organ dysfunction of thrombocytopenia and SUNITA.
-- Other (please specify)
�
Use of terms such as suspected, likely, concern for, or probable (associated with a specific diagnosis that is being evaluated, monitored, or treated as if it exists) are acceptable and can be coded in the inpatient setting when documented at the
time of discharge.
Please use your independent medical judgement in providing your response.
Thank you,
Fiona BRIZUELA,RN,CCDS
CDI Specialist
Available via [place] text
[2025-01-26 15:35] VITALS: BP 124/68
--- NOTE | 2025-01-26 16:14 | CON.GI ---
Addendum entered and electronically signed by Denzel Clayton DO 01/27/25 13:23:
I saw and examined the patient.
The LAMP SHADE JOINER's note was reviewed and I agree with the note.
Comment: Ms. Zapata is a very pleasant 79 y.o female with a past medical history of Waldenstrom's macroglobulinemia (on Rituxan) and ovarian tumor (s/p prior hysterectomy) who initially presented to the ED on 01/21/25 with generalized weakness and
lethargy along with high-grade fevers and reportedly COVID-positive during home positive COVID test. Her temperature was up to 102 �F in the ED and infectious workup was negative. Repeat COVID testing here was unrevealing along with unremarkable
infectious work-up. Initial LFTs on admission on 01/21/2025 demonstrated AST 206, ALT 46, ALP 287, and T. bili 1.5. Of note, previous LFTs 03/04/2024 with AST 35, ALT 17, ALP 106, and T Bili 0.6. Initially, this was felt to be related to sepsis
versus possible infectious etiology. Her transaminases continued to downtrend however she has had a slowly rising ALP in the 500s. She denies any history of liver disease, family history of liver disease or significant alcohol use. Viral hepatitis
serologies were also negative and demonstrated immunity to both HAV and HBV. Given her predominant cholestatic induced liver injury and eventual abdominal ultrasound 01/25/2025 was unremarkable for any biliary ductal dilatation, cholelithiasis,
sludge, or other significant findings. Additionally, the main portal vein appeared patent without reversal of flow. An eventual MRI WWO contrast on 01/26/2025 demonstrated a normal-appearing liver without any intrahepatic or extrahepatic biliary
ductal dilatation or choledocholithiasis. This did reveal an incidental 1.0 cm nonenhancing cystic focus in the anterior head of the pancreas (felt to be pseudocyst versus PCL) but was otherwise without high risk features and normal, nondilated
main pancreatic duct. Given her persistently elevated ALP (peaked at 518) GI was consulted for further evaluation. Clinically, suspect her acute cholestatic-induced liver injury is likely viral related. COVID-19 has been associated with a
cholestatic induced liver injury with predominant elevations in ALP (although typically 1000s). However, repeat COVID-19 testing negative on 3 separate occasions while she has remained inpatient and seems less likely. She denies any other new
medications to suggest DILI and she denies any herbal supplements. She doest take a few health supplements but has remained on these for several years and less likely. Differential also includes autoimmune liver disease versus PBC. However, her
ALP appears to be improving along with the rest of her LFTs and still suspect this is related to some viral mediated process as she previously had normal LFTs one year ago in 2023. Otherwise, she is without any evidence of significant
hyperbilirubinemia and her synthetic function remains intact. She does have thrombocytopenia, however suspect this may be related to her Waldenstr�m's macroglobulinemia versus viral infection as her previous platelets were normal in 2023.
Regardless, would still send autoimmune serologies along with immunoglobulins, AMA, along with IgG subclasses for completion. She continues to mentate appropriately and would defer any plans for liver biopsy at this time given her downtrending ALP.
Will continue to await her serological workup and will continue to limit/avoid hepatotoxic medications.
GI will continue to follow. Please call with any questions or concerns.
Original Note:
Consultation
-
Date/Time Consultation Requested: 01/26/25 1500
Date/Time Consultation Performed: 01/26/25 1615
Requesting Provider: Keshav Tam MD
Performing Provider: SUNIL Montez, Denzel Clayton DO
Reason for Consultation: increased LFT's
Medical History
Chief Complaint / HPI
Chief Complaint: fever, sore throat, jaundice
History of Present Illness:
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 Payne at [facility], ovarian tumor s/p hysterectomy, prior appe, hernia repair and hip surgery presents with severe sore throat, lethargy, diarrhea and fatigue. Spouse
was + for covid and pt tested + for covid but after admission pt had 3 negative covid tests. Since admission she is noted with fever, up to 103.2 on admission with WBC up to 13,700. She is also noted with persistent LFT elevation with bili 1.6,
AST 117, ALT 42, alk phos 518 with albumin 2.8, platelets down to low of 24,000. Hepatitis A total + with neg IGM(prior exposure), and hep B immunity otherwise neg. Urine cx + ecoli from 01/21 and oral thrush on Nystatin. Imaging with US 01/25
with normal GB no duct dilation patent portal vein, 01/26 - MRI with no acute abnormality, no choledocholithiasis, 1 cm cystic panc head focus pseudocyst/or cystic pancreatic neoplasm, renal cyst and small b/l effusion. Pt admit to hiking with tick
exposure 1 week prior to admission with tic illness in differential.
In review with patient she admits to recent sore throat with odynophagia that is improving. She also admits to some change in stool with paste consistency but no diarrhea. She denies dysphagia, GERD, abdominal pain, constipation, blood or
black in stools. No prior EGD or colon at . Pt denies NSAID or tylenol use. Supplement cranberry, Lutein, glucosamine, Glutathione, gregorio citrate. Pt eats organic foods but denies recent mushroom ingestion.
Past Medical History
Past Medical History: Cancer (ovarian tumor s/p hysterectomy) and Other (waldenstrom macroglobulinemia on Rituxan )
Past Surgical History: Appendectomy, Gynecological (hysterectomy), Orthopedic (right hip hemiarthroplasty 02/2024- ) and Other (inguinal hernia repair )
Social History
Tobacco: Non-Smoker
Alcohol: Occasional (rare)
Drug: None
Personal:
Living: With Family
Employment: Not Employed (recently lost job )
Family History
Family History: Other (no family hx liver issues )
Allergies / Home Medications
Allergy/AdvReac Type Severity Reaction Status Date / Time
diazepam Allergy Nausea Verified 01/21/25 12:32
�Medication �Instructions �Recorded
No Meds [No Current Medications] 01/21/25
Review of Systems
-
History Source: Patient
Constitutional: Reports Fever
EENT: Reports Sore Throat and Other (concern for thrush on admission )
Respiratory: Reports No Symptoms
Cardiac: Reports No Symptoms
Abdomen/GI: Reports Other (change in stool pattern with paste like stools)
: Reports Dysuria
Musculoskeletal: Reports Other (body aches )
Skin: Reports No Symptoms
Neurological: Reports Weakness
Endocrine: Reports No Symptoms
Hematologic/Lymphatic: Reports No Symptoms
Vital Signs
Temp Pulse Resp BP Pulse Ox
98.3 F 75 16 132/79 92
01/26/25 07:45 01/26/25 07:45 01/26/25 07:45 01/26/25 07:45 01/26/25 07:45
Physical Exam
Exam
General: Well Developed, Well Nourished and No Apparent Distress
HEENT: Other (jaundice )
Respiratory: Clear
Cardiac: Regular Rhythm and Peripheral Edema
GI: Soft, Non Tender and Non Distended
Musculoskeletal: No Clubbing and No Cyanosis
Skin: Warm and Dry
Neuro: Awake, Alert and AO x 3
Psych: Calm
Results
WBC 13.7 10^3/uL (4.8-10.8) H 01/26/25 07:16
Hgb 13.4 g/dL (12.0-16.0) 01/26/25 07:16
Hct 40.4 % (37.0-47.0) 01/26/25 07:16
MCV 87.3 fL (81.0-99.0) 01/26/25 07:16
Plt Count 65 10^3/uL (130-400) L D 01/26/25 07:16
Sodium 134 mmol/L (135-145) L 01/26/25 07:16
Potassium 4.2 mmol/L (3.5-5.1) 01/26/25 07:16
Chloride 105 mmol/L (98-107) 01/26/25 07:16
Carbon Dioxide 29 mmol/L (22-30) 01/26/25 07:16
BUN 28 mg/dl (7-17) H 01/26/25 07:16
Creatinine 1.0 mg/dL (0.6-1.0) 01/26/25 07:16
Calcium 9.4 mg/dl (8.4-10.2) 01/26/25 07:16
Total Bilirubin 1.6 mg/dl (0.2-1.3) H D 01/26/25 07:16
AST 117 U/L (14-36) H 01/26/25 07:16
ALT 42 U/L (0-35) H 01/26/25 07:16
Alkaline Phosphatase 518 U/L (38-126) H 01/26/25 07:16
Hepatitis A IgM Ab Negative (Negative) 01/25/25 06:06
Hepatitis A Ab Total Positive (Negative) 01/25/25 06:06
Hep Bs Antibody Positive 01/25/25 06:06
Hep B Core Total Ab Negative (Negative) 01/25/25 06:06
Hep B Core IgM Ab Cancelled 01/25/25 06:06
Hepatitis C Antibody Negative (Negative) 01/25/25 06:06
Diagnostic Image Results:
01/25/25 US Abdomen Complete/Upper
Normal appearance of the gallbladder with no evidence for biliary ductal dilation.
No focal abnormality of the liver. Not mentioned above, the main portal vein is patent with normal direction of flow.
Simple cyst arising in the upper pole the right kidney.
01/26/25 MR Abdomen W/o & W Contrast
No evidence for an acute abnormality of the abdomen.
No MRCP evidence for choledocholithiasis.
1.0 cm nonenhancing cystic focus in the anterior head of the pancreas, likely a small pseudocyst or cystic pancreatic neoplasm. Follow-up imaging can be performed in 2 years per ACR guidelines.
Bilateral renal cysts.
Small bilateral pleural effusions.
Assessment / Plan
-
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 Payne at [facility], ovarian tumor s/p hysterectomy, prior appe, hernia repair and hip surgery presents with severe sore throat, lethargy, diarrhea and fatigue. Spouse
was + for covid and pt tested + for covid but after admission pt had 3 negative covid tests. Since admission she is noted with fever, up to 103.2 on admission with WBC up to 13,700. She is also noted with persistent LFT elevation with bili 1.6,
AST 117, ALT 42, alk phos 518 with albumin 2.8, platelets down to low of 24,000. Hepatitis A total + with neg IGM(prior exposure), and hep B immunity otherwise neg. Urine cx + ecoli from 01/21 and oral thrush on Nystatin. Imaging with US 01/25
with normal GB no duct dilation patent portal vein, 01/26 - MRI with no acute abnormality, no choledocholithiasis, 1 cm cystic panc head focus pseudocyst/or cystic pancreatic neoplasm, renal cyst and small b/l effusion. Pt admit to hiking with tick
exposure 1 week prior to admission with tic illness in differential. In review with patient she admits to recent sore throat with odynophagia that is improving. She also admits to some change in stool with paste consistency but no diarrhea. Pt
denies NSAID or tylenol use. Supplement cranberry, Lutein, glucosamine, Glutathione, gregorio citrate. Pt eats organic foods but denies recent mushroom ingestion.
Fever/leukocytosis
persistent LFT elevation
thrombocytopenia
hypoalbuminemia
LE edema
change in stool pattern
Ecoli UTI
oral thrush
recent tic exposure
Immunosuppression with Rituximab with hx Waldenstr�m's macroglobulinemia
Recent covid + and family exposure
hx ovarian tumor with resection, hysterectomy, hernia repair and prior appe
PLAN:
Etiology of symptoms related to infectious etiology covid, UTI, tick bore illess, underlying liver issues, vs heme process with hx Waldenstr�m's macroglobulinemia and marked platelet dysfunction vs other
trend LFT's
add INR in AM
check mono with recent sore throat
appreciate ID input and monitor with change on abx
will add further liver serology with SCOUT, AMA, A1At, LKM, SLA
cont diet as tolerated
avoid hepatotoxic medication
-
-
Thank you for consultation and allowing me to participate in the patient's care. Please call the consultant in ergonomics and safety GI physician during the after hours with any questions or concerns.
[2025-01-26 16:52] VITALS: BP 136/79
[2025-01-26 23:45] VITALS: BP 139/80
[2025-01-27 07:00] VITALS: BP 152/85
[2025-01-27 07:53] LABS: INR 0.88; PT 12.4 Sec (11.4-14.6)
[2025-01-27 08:08] LABS: Hematocrit 36.3 % (37.0-47.0); Hemoglobin 12.2 g/dL (12.0-16.0); Mean Corp Hgb Conc. 33.6 g/dL (33.0-37.0); Mean Corpuscular Volume 83.8 fL (81.0-99.0); Platelet Count 106 10^3/uL (130-400); Red Cell Dist. Width 15.7 % (11.5-14.5)
[2025-01-27 08:09] LABS: ALT (SGPT) 40 U/L (0-35); AST (SGOT) 79 U/L (14-36); Albumin 2.6 g/dl (3.5-5.0); Alkaline Phosphatase 485 U/L (38-126); Blood Urea Nitrogen 24 mg/dl (7-17); Calcium 8.7 mg/dl (8.4-10.2); Carbon Dioxide 28 mmol/L (22-30); Chloride 106 mmol/L (98-107); Estimated Creatinine Clearance 41 ml/min; Glucose 92 mg/dl (70-99); Potassium 3.7 mmol/L (3.5-5.1); Sodium 137 mmol/L (135-145); Total Protein 4.7 g/dl (6.3-8.2); eGFR > 60.00
[2025-01-27 08:32] LABS: Nucleated Red Blood Cells % 0 %
[2025-01-27] MEDS: MYCOSTATIN ORAL SUSPENSION 5 ML PO ×4 (08:51→21:21)
[2025-01-27] MEDS: VIBRAMYCIN 100 MG PO ×2 (08:51→20:40)
--- NOTE | 2025-01-27 12:26 | CM ---
F/U: According to PT/OT, patient has not PT/OT needs. Patient is getting an MRI and now off COVID precautions. PLAN: Anticipate Home No Needs.
--- NOTE | 2025-01-27 13:59 | W.PN.HOSP.TC ---
Today's Communication/Plan
-
Follow LFTs
Will discuss with infectious disease regarding duration of doxycycline
Left a message for outpatient business systems administrator
Labs in the morning if stable possible discharge ? If OK with ID and GI also
Assessment / Plan
Assessment / Plan
79-year-old female with generalized weakness. and patient both tested positive for COVID at home
Ultrasound of the kidney-simple right renal cyst. No renal collecting system dilatation. Confirmation of bilateral ureteral jets. Small volume layering urinary bladder debris
Chest x-ray 01/22/2024-no acute cardiopulmonary process.
USS abdomen- Normal appearance of the gallbladder with no evidence for biliary ductal dilation.No focal abnormality of the liver. Not mentioned above, the main portal vein is patent with normal direction of flow.Simple cyst arising in the upper pole
the right kidney.
Oral Thrush
CVS: S1-S2 normal
Chest: CTA B/L
Abdomen: Soft, NT / Bowel sounds present, No RUQ tenderness
Extremities: Trace edema
# Fevers-likely secondary to Vital infection Vs UTI
Patient states that she pulled out a tick 1 week prior to coming to the hospital. She had helped her friend rake leaves and the next morning she found the stick on her calf which she pulled out.
COVID-19 Test was negative here times 3
Patient started on doxycycline-looks and feels better
Blood cultures negative
ID eval appreciated
# Oral Thrush- Nystatin
# Elevated LFTs- USS with out acute changes. Will get hepatitis panel and an MRI/MRCP. NO RUQ pain.
? Other Viral
MRI/MRCP-without any CBD obstruction
GI evaluation appreciated
Autoimmune serologies pending
# UTI-continue Doxy
# Loose stools-Resolved
# Thrombocytopenia-likely secondary to Waldenstr�m's macroglobulinemia, and viral [id number]. Platelets were normal in late 2023. Trending up. 106
Left a message for her Op Doc Dr Desai [phone]
# Leukopenia improved
# Hypokalemia-improved
# Hypophosphatemia-replaced
# SUNITA-improved
# Waldenstrom's macroglobulinemia-maintained on Rituxan as outpatient due again 02/01/25
# Severe protein calorie malnutrition- ensure
# Hypoalbuminemia
# DVT prophylaxis-SCDs
# DNR
D/W RN at bed side
D/W GI
D/W ID
Part of this note was created using voice recognition system. Occasional wrong word or��sound alike� substitutions may have inadvertently occurred due to the inherent limitations of voice recognition software. If noted kindly bring it to my
attention for correction.
Anticipated Discharge: Within 24 hours
Subjective/Interval History
-
Date of Service: January 27, 2025
Objective Data
-
Labs:
Laboratory Results
01/27/25 01/27/25
06:43 06:44
WBC 14.5 H
Hgb 12.2
Hct 36.3 L
Plt Count 106 L D
PT 12.4
INR 0.88
Sodium 137
Potassium 3.7
Chloride 106
Carbon Dioxide 28
BUN 24 H
Creatinine 0.8
Glucose 92
Calcium 8.7
Total Bilirubin 1.0
AST 79 H
ALT 40 H
Alkaline Phosphatase 485 H
Vital Signs:
Vital Signs
Temp Pulse Resp BP Pulse Ox
97.8 F 81 20 152/85 97
01/27/25 07:00 01/27/25 07:00 01/27/25 07:00 01/27/25 07:00 01/27/25 07:00
I&O
01/26/25 01/27/25 01/28/25
06:59 06:59 06:59
Intake Total 1320 / 1320 660 / 660
Balance 1320 / 1320 431 / 927
[2025-01-27 15:01] VITALS: BP 119/70
--- NOTE | 2025-01-27 16:30 | W.PN.ID1 ---
Date of Service
Date of Service: January 27, 2025
Today's Communication
- Discussed sending anaplasma, ehrlichia, lyme serologies with patient, she would also need to get convalescent serologies in two weeks and the acute serologies wouldnt change my management at this time. We agreed to treat her empirically as she is
already improving
- unclear if low IgG and elevated IgM levels are due to rituximab, acute infection or other differential, suggest outpatient follow up with her supervisor screen printing and repeat levels at a later date
- continue doxycycline 100 mg PO BID x2 weeks 01/25-02/07
Oral Thrush
- nystatin swish and swallow x 7days
Stable for dc from ID perspective
Assessment / Plan
Fever - resolved
Leukocytosis
Immunosuppression - Rituximab
Waldenstr�m's macroglobulinemia
Transaminitis - resolving
UTI
Recent COVID Infection
- blood cultures x2 no growth to date
- covid ag negative 01/21, 01/24, 01/26 negative taken off of isolation
- urine culture 100K E coli and pyuria; she does relate urinary frequency
- note that with improving renal function keflex was underdosed, may explain the relapse of fevers 01/24
- patient also with transaminitis, low platelets, extensive time hiking, and an embeded tick about 10 days ago tick born infection also on the differential
- Discussed sending anaplasma, ehrlichia, lyme serologies with patient, she would also need to get convalescent serologies in two weeks and the acute serologies wouldnt change my management at this time. We agreed to treat her empirically as she is
already improving
- unclear if low IgG and elevated IgM levels are due to rituximab, acute infection or other differential, suggest outpatient follow up with her supervisor screen printing and repeat levels at a later date
- continue doxycycline 100 mg PO BID x2 weeks 01/25-02/07
Oral Thrush
- nystatin swish and swallow x 7days
Stable for dc from ID perspective
Chief Complaint
-: Fever and UTI
Subjective / Review of Systems
remains afebrile
bp stable
overall clinically improved
Vital Signs / Physical Exam
Vital Signs
Vital Signs
Temp Pulse Resp BP Pulse Ox
98.4 F 85 20 119/70 97
01/27/25 15:01 01/27/25 15:01 01/27/25 15:01 01/27/25 15:01 01/27/25 15:01
Physical Exam
Constitutional: No Acute Distress
Cardiovascular: Regular Rate and S1/S2; Negative Murmur or Rub
Pulmonary: Clear and Symmetric; Negative Wheezes or Rales
Gastrointestinal: Soft, Non Tender, Non Distended and Normal Bowel Sounds
Skin: Warm and Dry; Negative Rash or Jaundice
Objective Data
Lab Data
Lab Results
01/27/25 06:44
01/27/25 06:43
PT 12.4 Sec (11.4-14.6) 01/27/25 06:43
INR 0.88 01/27/25 06:43
Estimated Creat Clear 41 ml/min 01/27/25 06:43
Lactic Acid 2.3 mmol/L (0.7-2.0) H 01/21/25 12:58
Lactic Acid Cancelled 01/21/25 12:58
Total Bilirubin 1.0 mg/dl (0.2-1.3) 01/27/25 06:43
AST 79 U/L (14-36) H 01/27/25 06:43
ALT 40 U/L (0-35) H 01/27/25 06:43
Alkaline Phosphatase 485 U/L (38-126) H 01/27/25 06:43
Most recent labs reviewed.
Micro Results:
01/21/25 17:18 Blood Culture - Final
Blood/Venous No Growth - Final Report
01/21/25 12:58 Blood Culture - Final
Blood/Venous No Growth - Final Report
01/21/25 15:26 Urine Culture - Final
Urine Escherichia coli
01/21/25 12:58 Influenza Types A & B (CAROLEE) - Final
Nasal Swab Negative for Influenza A & B, NAAT
Negative results must be combined with clinical observations
and patient history.
Nucleic Acid Amplification test (NAAT)performed on the
[employer] platform.
[2025-01-27 23:00] VITALS: BP 145/85
[2025-01-28 07:00] VITALS: BP 152/80
[2025-01-28 07:18] LABS: Platelet Count 161 10^3/uL (130-400)
[2025-01-28 07:54] LABS: ALT (SGPT) 34 U/L (0-35); AST (SGOT) 59 U/L (14-36); Albumin 2.7 g/dl (3.5-5.0); Alkaline Phosphatase 513 U/L (38-126); Blood Urea Nitrogen 22 mg/dl (7-17); Calcium 8.7 mg/dl (8.4-10.2); Carbon Dioxide 30 mmol/L (22-30); Chloride 106 mmol/L (98-107); Estimated Creatinine Clearance 41 ml/min; Glucose 90 mg/dl (70-99); Potassium 3.6 mmol/L (3.5-5.1); Sodium 138 mmol/L (135-145); Total Protein 4.9 g/dl (6.3-8.2); eGFR > 60.00
[2025-01-28 09:39] LABS: GGTP 490 U/L (12-43)
[2025-01-28] MEDS: MYCOSTATIN ORAL SUSPENSION 5 ML PO ×2 (09:56→15:13)
[2025-01-28] MEDS: VIBRAMYCIN 100 MG PO (09:56)
--- NOTE | 2025-01-28 11:11 | CM ---
SLIM met with Nia at bedside to complete IA. IMM provided and signed, however per Nia, she does not have Medicare, and apparently tells the hospital this any time she is admitted.
Pt lives with her , Asher, who will drive her home later this afternoon.
Plan: Discharge to home with no needs.
--- NOTE | 2025-01-28 11:58 | W.PN.GI.CBS2 ---
Today's Communication / Plan
-
trend labs
Assessment / Plan
-
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 Payne at [facility], ovarian tumor s/p hysterectomy, prior appe, hernia repair and hip surgery presents with severe sore throat, lethargy, diarrhea and fatigue. Spouse
was + for covid and pt tested + for covid but after admission pt had 3 negative covid tests. Since admission she is noted with fever, up to 103.2 on admission with WBC up to 13,700. She is also noted with persistent LFT elevation with bili 1.6,
AST 117, ALT 42, alk phos 518 with albumin 2.8, platelets down to low of 24,000. Hepatitis A total + with neg IGM(prior exposure), and hep B immunity otherwise neg. Urine cx + ecoli from 01/21 and oral thrush on Nystatin. Imaging with US 01/25
with normal GB no duct dilation patent portal vein, 01/26 - MRI with no acute abnormality, no choledocholithiasis, 1 cm cystic panc head focus pseudocyst/or cystic pancreatic neoplasm, renal cyst and small b/l effusion. Pt admit to hiking with tick
exposure 1 week prior to admission with tic illness in differential. In review with patient she admits to recent sore throat with odynophagia that is improving. She also admits to some change in stool with paste consistency but no diarrhea. Pt
denies NSAID or tylenol use. Supplement cranberry, Lutein, glucosamine, Glutathione, gregorio citrate. Pt eats organic foods but denies recent mushroom ingestion.
Fever/leukocytosis
persistent LFT elevation
thrombocytopenia
hypoalbuminemia
LE edema
change in stool pattern
Ecoli UTI
oral thrush
recent tic exposure
Immunosuppression with Rituximab with hx Waldenstr�m's macroglobulinemia
Recent covid + and family exposure
hx ovarian tumor with resection, hysterectomy, hernia repair and prior appe
PLAN:
Etiology of symptoms related to infectious etiology covid, UTI, tick bore illess, underlying liver issues, vs heme process with hx Waldenstr�m's macroglobulinemia and marked platelet dysfunction vs other
Still with elevated alkaline phosphatase level and GGT level is also elevated, AST and ALT trending down
MRCP negative for CBD stone or stricture
Positive hepatitis A total antibody likely from prior infection or vaccination and also positive hepatitis B surface antibody also likely from vaccination negative hepatitis B core antibody and negative hepatitis B surface antigen, HCV Ab negative
Other labs are pending
Noted input from ID started on doxycycline for possible tickborne illness
Platelet count is improved
Needs repeat MRI with MRCP in 2 years for the pancreatic cyst
Repeat labs in 1 week
Follow-up with Dr. Clayton in 6 to 8 weeks.
Subjective
Subjective
Date of Service: January 28, 2025
Remains afebrile, blood cultures negative, denies any abdominal pain and tolerating diet.
Objective
Data Reviewed
Laboratory Data:
Laboratory Results
01/28/25 06:51
01/28/25 06:51
Laboratory Results
PT 12.4 Sec (11.4-14.6) 01/27/25 06:43
INR 0.88 01/27/25 06:43
Phosphorus 1.8 mg/dl (2.5-4.5) L 01/24/25 07:22
Magnesium 1.8 mg/dl (1.6-2.3) 01/26/25 07:16
Total Bilirubin 0.8 mg/dl (0.2-1.3) 01/28/25 06:51
AST 59 U/L (14-36) H 01/28/25 06:51
ALT 34 U/L (0-35) 01/28/25 06:51
Alkaline Phosphatase 513 U/L (38-126) H 01/28/25 06:51
Vital Signs and I&O:
Vital Signs
Temp Pulse Resp BP Pulse Ox
97.8 F 74 20 152/80 95
01/28/25 07:00 01/28/25 07:00 01/28/25 07:00 01/28/25 07:00 01/28/25 07:00
I&O
01/27/25 01/28/25 01/29/25
06:59 06:59 06:59
Intake Total 660 / 660 1380 / 1380
Balance 660 / 660 1380 / 1380
Laboratory Tests
01/25/25 01/26/25 01/26/25
06:06 07:16 08:17
GGT
Hepatitis A IgM Ab Negative
Hepatitis A Ab Total Positive
Hep Bs Antigen Negative
Hep Bs Antibody Positive
Hep B Core Total Ab Negative
Hepatitis C Antibody Negative
Monoscreen Negative
SARS-CoV-2 Antigen Negative
01/28/25
06:51
GGT 490 H
Hepatitis A IgM Ab
Hepatitis A Ab Total
Hep Bs Antigen
Hep Bs Antibody
Hep B Core Total Ab
Hepatitis C Antibody
Monoscreen
SARS-CoV-2 Antigen
Social history:
01/26/2025 MRI with MRCP
IMPRESSION:
No evidence for an acute abnormality of the abdomen.
No MRCP evidence for choledocholithiasis.
1.0 cm nonenhancing cystic focus in the anterior head of the pancreas, likely a small pseudocyst or cystic pancreatic neoplasm. Follow-up imaging can be performed in 2 years per ACR guidelines.
Bilateral renal cysts.
Small bilateral pleural effusions.
Physical Exam
Physical Exam
Cardiology: Normal Sinus Rhythm
Pulmonary: Clear
GI: Soft, Non Distended and Normal Bowel Sounds
--- NOTE | 2025-01-28 12:46 | W.PN.ID1 ---
Date of Service
Date of Service: January 28, 2025
Today's Communication
- continue doxycycline 100 mg PO BID x2 weeks 01/25-02/07
- nystatin swish and swallow x 7days 01/26-02/01
Stable for dc from ID perspective
Assessment / Plan
Fever - resolved
Leukocytosis
Immunosuppression - Rituximab
Waldenstr�m's macroglobulinemia
Transaminitis - resolving
UTI
Recent COVID Infection
- blood cultures x2 finalized negative
- urine culture 100K E coli and pyuria; she does relate urinary frequency
- transaminitis and thrombocytopenia resolving
- Discussed sending anaplasma, ehrlichia, lyme serologies with patient, she would also need to get convalescent serologies in two weeks and the acute serologies wouldnt change my management at this time. We agreed to treat her empirically as she is
already improving
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
- continue doxycycline 100 mg PO BID x2 weeks 01/25-02/07
Oral Thrush
- nystatin swish and swallow x 7days 01/26-02/01
Stable for dc from ID perspective
Chief Complaint
-: Fever and UTI
Subjective / Review of Systems
remains afebrile
bp stable
no events overnight
no complaints, walking around the unit
Vital Signs / Physical Exam
Vital Signs
Vital Signs
Temp Pulse Resp BP Pulse Ox
97.8 F 74 20 152/80 95
01/28/25 07:00 01/28/25 07:00 01/28/25 07:00 01/28/25 07:00 01/28/25 07:00
Physical Exam
Constitutional: No Acute Distress
Cardiovascular: Regular Rate and S1/S2; Negative Murmur or Rub
Pulmonary: Clear and Symmetric; Negative Wheezes or Rales
Gastrointestinal: Soft, Non Tender, Non Distended and Normal Bowel Sounds
Skin: Warm and Dry; Negative Rash or Jaundice
Objective Data
Lab Data
Lab Results
01/28/25 06:51
01/28/25 06:51
PT 12.4 Sec (11.4-14.6) 01/27/25 06:43
INR 0.88 01/27/25 06:43
Estimated Creat Clear 41 ml/min 01/28/25 06:51
Lactic Acid 2.3 mmol/L (0.7-2.0) H 01/21/25 12:58
Lactic Acid Cancelled 01/21/25 12:58
Total Bilirubin 0.8 mg/dl (0.2-1.3) 01/28/25 06:51
GGT 490 U/L (12-43) H 01/28/25 06:51
AST 59 U/L (14-36) H 01/28/25 06:51
ALT 34 U/L (0-35) 01/28/25 06:51
Alkaline Phosphatase 513 U/L (38-126) H 01/28/25 06:51
Most recent labs reviewed.
Micro Results:
01/21/25 17:18 Blood Culture - Final
Blood/Venous No Growth - Final Report
01/21/25 12:58 Blood Culture - Final
Blood/Venous No Growth - Final Report
01/21/25 15:26 Urine Culture - Final
Urine Escherichia coli
01/21/25 12:58 Influenza Types A & B (CAROLEE) - Final
Nasal Swab Negative for Influenza A & B, NAAT
Negative results must be combined with clinical observations
and patient history.
Nucleic Acid Amplification test (NAAT)performed on the
[employer] platform.
--- NOTE | 2025-01-28 14:19 | W.PN.HOSP.TC ---
Today's Communication/Plan
-
Discharge
Assessment / Plan
Assessment / Plan
79-year-old female with generalized weakness. and patient both tested positive for COVID at home
Ultrasound of the kidney-simple right renal cyst. No renal collecting system dilatation. Confirmation of bilateral ureteral jets. Small volume layering urinary bladder debris
Chest x-ray 01/22/2024-no acute cardiopulmonary process.
USS abdomen- Normal appearance of the gallbladder with no evidence for biliary ductal dilation.No focal abnormality of the liver. Not mentioned above, the main portal vein is patent with normal direction of flow.Simple cyst arising in the upper pole
the right kidney. MRI-No evidence for an acute abnormality of the abdomen.No MRCP evidence for choledocholithiasis.1.0 cm nonenhancing cystic focus in the anterior head of the pancreas, likely a small pseudocyst or cystic pancreatic neoplasm.
Follow-up imaging can be performed in 2 years per ACR guidelines.Bilateral renal cysts.Small bilateral pleural effusions.
Oral Thrush- resolving
CVS: S1-S2 normal
Chest: CTA B/L
Abdomen: Soft, NT / Bowel sounds present, No RUQ tenderness
Extremities: Trace edema
# Fevers-likely secondary UTI /tick borne illnes / viral
Patient states that she pulled out a tick 1 week prior to coming to the hospital. She had helped her friend rake leaves and the next morning she found the stick on her calf which she pulled out.
COVID-19 Test was negative here times 3
Patient started on doxycycline-looks and feels better
Blood cultures negative
ID eval appreciated
# Oral Thrush- Nystatin
# Elevated LFTs- USS with out acute changes. Hepatitis panel neg for active infection.
? Other Viral
MRI/MRCP-without any CBD obstruction
GI evaluation appreciated
Autoimmune serologies pending
# UTI-continue Doxy
# Loose stools-Resolved
# Thrombocytopenia-likely secondary to Waldenstr�m's macroglobulinemia, and viral [id number]. Platelets were normal in late 2023. Trending up. 106
Left a message for her Op Doc Dr Desai [phone] yesterday, no call back yet.
# Leukopenia improved
# Hypokalemia-improved
# Hypophosphatemia-replaced
# SUNITA-improved
# Waldenstrom's macroglobulinemia-maintained on Rituxan as outpatient due again 02/01/25
# Severe protein calorie malnutrition- ensure
# Hypoalbuminemia
# DVT prophylaxis-SCDs
# DNR
D/W RN at bed side
D/W GI
D/W and updated.
Follow-up care including further follow-up with GI, repeat LFTs, following with hematology oncology, MRI of the pancreas in 2 years old discussed.
More than 30 minutes spent in discharge including
Final examination of the patient
Summarizing hospital stay
Instructions for continuing care to all relevant caregivers
Preparation of discharge records, prescriptions, and referral forms
Part of this note was created using voice recognition system. Occasional wrong word or��sound alike� substitutions may have inadvertently occurred due to the inherent limitations of voice recognition software. If noted kindly bring it to my
attention for correction.
Anticipated Discharge: Today
Subjective/Interval History
-
Date of Service: January 28, 2025
Objective Data
-
Labs:
Laboratory Results
01/28/25
06:51
Plt Count 161 D
Sodium 138
Potassium 3.6
Chloride 106
Carbon Dioxide 30
BUN 22 H
Creatinine 0.8
Glucose 90
Calcium 8.7
Total Bilirubin 0.8
AST 59 H
ALT 34
Alkaline Phosphatase 513 H
Vital Signs:
Vital Signs
Temp Pulse Resp BP Pulse Ox
97.8 F 74 20 152/80 95
01/28/25 07:00 01/28/25 07:00 01/28/25 07:00 01/28/25 07:00 01/28/25 07:00
I&O
01/27/25 01/28/25 01/29/25
06:59 06:59 06:59
Intake Total 660 / 660 1380 / 1380
Balance 660 / 660 1380 / 1380
[2025-01-28 15:00] VITALS: BP 122/66
--- NOTE | 2025-01-28 16:44 | W.DS.TRANS ---
Addendum entered and electronically signed by Keshav Collins MD 01/28/25 17:23:
Dictation- [id number]
Original Note:
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
-
Discharge Instructions:
Discharge Diagnosis/Procedures Fevers-likely tickborne illness
UTI
Elevated Liver tests
Thrombocytopenia
Waldenstr�m's macroglobulinemia
Oral thrush
Diet As tolerated
Activity As tolerated
Driving Restrictions As prior to admission
Blood Work CBC, CMP 1 week
Others Tests repeat MRI with MRCP in 2 years for the
pancreatic cyst
Instructions:
Stand-Alone Forms:
Changes to Home Medications: Yes
Discharge Medications:
DC Medications w/original date entered in [employer]
doxycycline hyclate 100 mg capsule 100 mg PO Q12 infection #23 caps 01/28/25
nystatin 100,000 unit/mL oral suspension 5 ml PO QID thrush #60 mL 01/28/25
Home Medication Changes
Both above medicines new
Pending Results: Yes
Additional Pending Results:
Hepatic autoimmune serologies, alpha-1 antitrypsin
[2025-01-29 02:35] LABS: ANA, IgG Reflex to HEp-2 None Detected (None Detected)
[2025-01-29 10:05] LABS: Mitochondrial M2 Ab, IgG 1.9 Units (0.0-24.9)
[2025-01-30 02:22] LABS: LKM-1 Ab (IgG) 1.0 U (0.0-24.9)
[2025-01-31 01:18] LABS: Soluble Liver Antigen Ab 0.9 U (0.0-24.9)
== END 2025-01-28 18:14 | disposition home or self-care (01) | DRG 865 ==
LOC: 2 NORTH 19:40
PROVIDERS: Emergency Medicine; Internal Medicine; Nurse Practitioner Adult Health; ADMITTING PHYSICIAN Hospitalist; ATTENDING PHYSICIAN Hospitalist; CONSULT PHYSICIAN Student in an Organized Health Care Education/Training Program; EMERGENCY PHYSICIAN Emergency Medicine; FAMILY PHYSICIAN Family Medicine; OTHER PHYSICIAN Student in an Organized Health Care Education/Training Program
DX: A93.8 Other specified arthropod-borne viral fevers (principal); E43 Unspecified severe protein-calorie malnutrition; E87.1 Hypo-osmolality and hyponatremia; N39.0 Urinary tract infection, site not specified; N17.9 Acute kidney failure, unspecified; D84.821 Immunodeficiency due to drugs; B37.0 Candidal stomatitis; K86.3 Pseudocyst of pancreas; Z68.1 Body mass index [BMI] 19.9 or less, adult; N80.9 Endometriosis, unspecified; K66.0 Peritoneal adhesions (postprocedural) (postinfection); E87.6 Hypokalemia; R39.15 Urgency of urination; K29.80 Duodenitis without bleeding; M62.89 Other specified disorders of muscle; B96.20 Unspecified Escherichia coli [E. coli] as the cause of diseases classified elsewhere; R79.89 Other specified abnormal findings of blood chemistry; N28.1 Cyst of kidney, acquired; E83.39 Other disorders of phosphorus metabolism; R74.01 Elevation of levels of liver transaminase levels; R13.10 Dysphagia, unspecified; C88.00 Waldenstrom macroglobulinemia not having achieved remission; R35.0 Frequency of micturition; D69.6 Thrombocytopenia, unspecified; Z66 Do not resuscitate; Z96.641 Presence of right artificial hip joint; Z90.710 Acquired absence of both cervix and uterus; Z88.8 Allergy status to other drugs, medicaments and biological substances; Z11.52 Encounter for screening for COVID-19; Z79.620 Long term (current) use of immunosuppressive biologic; Z86.16 Personal history of COVID-19
CPT/HCPCS: 71046; 74183; 76700; 76770; 80048; 80053; 81003; 81015; 82103; 82248; 82784; 82787; 82977; 83516; 83605; 83735; 84100; 85025; 85027; 85049; 85610; 86038; 86308; 86376; 86381; 86704; 86706; 86708; 86709; 86803; 86850; 86900; 86901; 87040; 87077; 87086; 87186; 87340; 87502; 87811; 93005; 94760; 96374; 97162; 97166; 97530; 99285; A9575